=== PATIENT | male | born 1955 | race Caucasian/White ===

== ENCOUNTER 2017-07-27 15:17 | Emergency (ER) | payer OTHER ==
[~2017-07-27] VITALS: Ht 167.6 cm; Wt 81.8 kg
[~2017-07-27 15:17] MED LIST: ALPR-411 PO
[2017-07-27 15:18] VITALS: TEMP 36.8; Ht 167.6 cm; Wt 81.8 kg
--- NOTE | 2017-07-27 15:42 | EMERGENCY ROOM VISIT NOTE ---
History Report prepared by Ying: Juani Morfin Under the Supervision of: Dr. Ike Hutchinson M.D. First contact with patient: 15:21 Chief Complaint: ABDOMINAL PAIN Stated Complaint: RIGHT SIDE ABD. PAIN History of Present Illness The patient is a 62 year old male who presents to the Emergency Room with complaints of worsening RLQ abdominal pain starting yesterday. The patient noticed the pain when his belt was pressing into his abdomen. The pain worsens with movement. The pain seems worse today than it was yesterday. He currently rates his discomfort as a 3/10 in severity. He describes the pain as being similar to a cramp that occurs when running or a pulled muscle. The pain is mostly in the right lower quadrant, but sometimes occurs in the middle of his abdomen. He has never had this pain before. He had a normal bowel movement this morning. He denies any nausea, vomiting, urinary symptoms, diarrhea, or fever. He notes that he is pretty active at home. 3-4 days ago he was lifting some 50- 55 lb containers. He was also retrieving boxes of [place] from high up. He does not think he injured himself during these activities. He denies any trauma. He denies any history of abdominal surgeries or diverticulitis. Source of History: patient Onset: yesterday Position: abdomen (RLQ) Symptom Intensity: 3/10 Quality: cramping, other (pulled muscle) Timing: worsening Associated Symptoms: No fevers, No nausea, No vomiting, No diarrhea, No urinary symptoms Review of Systems See HPI for pertinent positives & negatives. A total of 10 systems reviewed and were otherwise negative. Past Medical & Surgical Medical Problems: (1) High cholesterol Surgical Problems: (1) H/O knee surgery Family History Chest pain Social History Smoking Status: Never Smoker Alcohol Use: occasionally Drug Use: none Marital Status: Housing Status: lives with significant other Occupation Status: employed Current/Historical Medications Scheduled Multiple Vitamin (Multivitamin), 1 TAB PO DAILY Rosuvastatin Calcium (Crestor), 5 MG PO DIRECTED Scheduled PRN Alprazolam (Alprazolam), 0.25 MG PO DAILY PRN for Anxiety Allergies Coded Allergies: No Known Allergies (Unverified , 08/22/16) Physical Exam Vital Signs Date Time Temp Pulse Resp B/P (MAP) Pulse Ox O2 Delivery O2 Flow Rate FiO2 07/27/17 17:28 72 16 133/88 96 07/27/17 17:15 72 16 133/88 96 Room Air 07/27/17 15:18 36.8 74 16 162/89 94 Room Air Physical Exam GENERAL: Patient is in no acute distress. HEENT: No acute trauma, normocephalic atraumatic, mucous membranes moist, no nasal congestion, no scleral icterus. NECK: No stridor, no adenopathy, no meningismus, trachea is midline. LUNGS: Clear to auscultation bilaterally, no wheeze, no rhonchi, breath sounds equal. HEART: Without murmurs gallops or rubs, regular rate and rhythm. ABDOMEN: Soft, mildly tender in the RLQ, bowel sounds positive, no hernias, no peritonitis. EXTREMITIES: No cyanosis or edema, full range of motion of all the joints without pain or difficulty, no signs for acute trauma. NEUROLOGIC: Oriented x 3, no acute motor or sensory deficits, no focal weakness. SKIN: No rash, no jaundice, no diaphoresis. Medical Decision & Procedures ER Provider Diagnostic Interpretation: Radiology results as stated below per my review and radiologist interpretation: ABD/PELVIS IV CONTRAST ONLY CT DOSE: 398.64 mGy.cm HISTORY: Pain ABD PAIN, POSS APPY, IV CONTRAST ONLY TECHNIQUE: Multiaxial CT images of the abdomen and pelvis were performed following the use of intravenous contrast. A dose lowering technique was utilized adhering to the principles of ALARA. COMPARISON STUDY: None. FINDINGS: Lung bases show a slight peribronchial prominence. Minimal dependent basilar atelectatic changes noted. Liver spleen and pancreas enhance uniformly. Small hiatal hernia. Kidneys are negative for hydronephrosis. There is an extrarenal pelvis of the right kidney. There is no evidence for an obstructing urinary tract calculus. The appendix is normal. The bowel pattern is nonobstructive. Moderate atherosclerotic change and ectasia of the abdominal aorta with no evidence for aneurysm or dissection. IMPRESSION: No significant abnormality identified within the abdomen or pelvis. Normal appendix. Mild basilar peribronchial prominence The above report was generated using voice recognition software. It may contain grammatical, syntax or spelling errors. Electronically signed by: Rafal Fierro M.D. 07/27/2017 4:58 PM Dictated Date/Time: 07/27/2017 4:53 PM Laboratory Results 07/27/17 15:40 Red Blood Count 5.44, Mean Corpuscular Volume 83.3, Mean Corpuscular Hemoglobin 29.0, Mean Corpuscular Hemoglobin Concent 34.9, Mean Platelet Volume 10.2, Neutrophils (%) (Auto) 62.5, Lymphocytes (%) (Auto) 26.6, Monocytes (%) (Auto) 8.6, Eosinophils (%) (Auto) 1.9, Basophils (%) (Auto) 0.2, Neutrophils # (Auto) 3.70, Lymphocytes # (Auto) 1.57, Monocytes # (Auto) 0.51, Eosinophils # (Auto) 0.11, Basophils # (Auto) 0.01 07/27/17 15:40 Test 07/27/17 15:25 07/27/17 15:40 Urine Color YELLOW Urine Appearance CLEAR (CLEAR) Urine pH 7.0 (4.5-7.5) Urine Specific [place] 1.019 (1.000-1.030) Urine Protein NEG (NEG) Urine Glucose (UA) NEG (NEG) Urine Ketones NEG (NEG) Urine Occult Blood NEG (NEG) Urine Nitrite NEG (NEG) Urine Bilirubin NEG (NEG) Urine Urobilinogen NEG (NEG) Urine Leukocyte Esterase TRACE (NEG) Urine WBC (Auto) 1-5 /hpf (0-5) Urine RBC (Auto) 0-4 /hpf (0-4) Urine Hyaline Casts (Auto) 0 /lpf (0-5) Urine Epithelial Cells (Auto) 0-5 /lpf (0-5) Urine Bacteria (Auto) NEG (NEG) White Blood Count 5.91 K/uL (4.8-10.8) Red Blood Count 5.44 M/uL (4.7-6.1) Hemoglobin 15.8 g/dL (14.0-18.0) Hematocrit 45.3 % (42-52) Mean Corpuscular Volume 83.3 fL (80-100) Mean Corpuscular Hemoglobin 29.0 pg (25-34) Mean Corpuscular Hemoglobin Concent 34.9 g/dl (32-36) Platelet Count 176 K/uL (130-400) Mean Platelet Volume 10.2 fL (7.4-10.4) Neutrophils (%) (Auto) 62.5 % Lymphocytes (%) (Auto) 26.6 % Monocytes (%) (Auto) 8.6 % Eosinophils (%) (Auto) 1.9 % Basophils (%) (Auto) 0.2 % Neutrophils # (Auto) 3.70 K/uL (1.4-6.5) Lymphocytes # (Auto) 1.57 K/uL (1.2-3.4) Monocytes # (Auto) 0.51 K/uL (0.11-0.59) Eosinophils # (Auto) 0.11 K/uL (0-0.5) Basophils # (Auto) 0.01 K/uL (0-0.2) RDW Standard Deviation 39.8 fL (36.4-46.3) RDW Coefficient of Variation 13.3 % (11.5-14.5) Immature Granulocyte % (Auto) 0.2 % Immature Granulocyte # (Auto) 0.01 K/uL (0.00-0.02) Anion Gap 6.0 mmol/L (3-11) Est Creatinine Clear Calc Drug Dose 68.3 ml/min Estimated GFR () 80.0 Estimated GFR (Non- 69.0 BUN/Creatinine Ratio 14.0 (10-20) Calcium Level 9.0 mg/dl (8.5-10.1) Total Bilirubin 1.2 mg/dl (0.2-1) Aspartate Amino Transf (AST/SGOT) 23 U/L (15-37) Alanine Aminotransferase (ALT/SGPT) 48 U/L (12-78) Alkaline Phosphatase 85 U/L (45-117) Total Protein 7.4 gm/dl (6.4-8.2) Albumin 3.5 gm/dl (3.4-5.0) Globulin 3.9 gm/dl (2.5-4.0) Albumin/Globulin Ratio 0.9 (0.9-2) Lipase 189 U/L (73-393) Laboratory results reviewed by me. ED Course 1526: The patient was evaluated in room C7. A complete history and physical exam was performed. 1707: I reevaluated the patient. I discussed results and discharge instructions : He verbalized understanding and agreement. The patient is ready for discharge. Medical Decision Differential diagnoses considered include appendicitis, diverticulitis, musculoskeletal pain, hernia, UTI, pancreatitis, biliary colic, mesenteric adenitis. There is no leukocytosis or concerning anemia. No significant electrolyte abnormality, kidney failure or hepatitis. There is no pancreatitis. Urinalysis does not show significant hematuria or evidence for infection. Abdominal and pelvis CT does not show diverticulitis or appendicitis. No evidence for acute surgical process by CT scan. On my exam, there was no peritonitis. The patient was not toxic or febrile. The patient presents with right lower quadrant abdominal pain. His workup is reassuring. He has been doing some work lately around his house and may have pulled a muscle. I do think he can be discharged. He was encouraged to return if not improving or worsening. I discussed the possibility of a missed appendicitis with him. He understands. Impression Primary Impression: RLQ abdominal pain Scribe Attestation The scribe's documentation has been prepared under my direction and personally reviewed by me in its entirety. I confirm that the note above accurately reflects all work, treatment, procedures, and medical decision making performed by me. Departure Information Dispostion Home / Self-Care Referrals Rodney Pemberton M.D. (PCP) Forms Call Back Authorization, HOME CARE DOCUMENTATION FORM, IMPORTANT VISIT INFORMATION Patient Instructions My [facility] Additional Instructions heat to the area may help motrin and or tylenol for pain return for worsening pain, lack of improvement, vomiting or fever CT scan today showed a normal appendix
[2017-07-27 15:43] LABS: URINE APPEARANCE CLEAR (CLEAR); URINE BILIRUBIN NEG (NEG); URINE COLOR YELLOW; URINE EPITHELIAL CELL AUTO 0-5 /lpf (0-5); URINE NITRITE NEG (NEG); URINE SPECIFIC GRAVITY 1.019 (1.000-1.030); UROBILINOGEN NEG (NEG); ZZUR CULT IF INDIC CLEAN CATCH NO
[2017-07-27 15:45] LABS: MANUAL MICROSCOPIC REQUIRED? NO; REVIEW REQ? NO
[2017-07-27] MEDS ORDERED: ROSU5TAB PO (15:50)
[2017-07-27 15:57] LABS: BASO % 0.2 %; BASO ABS # 0.01 K/uL (0-0.2); COMPLETE YES; EOS % 1.9 %; HEMATOCRIT 45.3 % (42-52); IG% 0.2 %; LYMPH % 26.6 %; LYMPH ABS # 1.57 K/uL (1.2-3.4); MEAN CELL VOLUME 83.3 fL (80-100); MEAN CORPUSCULAR HGB CONC 34.9 g/dl (32-36); MEAN PLATELET VOLUME 10.2 fL (7.4-10.4); MONO % 8.6 %; NEUT % 62.5 %; PLATELET COUNT 176 K/uL (130-400); RED BLOOD COUNT 5.44 M/uL (4.7-6.1); WHITE BLOOD COUNT 5.91 K/uL (4.8-10.8)
[2017-07-27 16:18] LABS: CREATININE 1.14 mg/dl (0.60-1.40); POTASSIUM 3.5 mmol/L (3.5-5.1)
[2017-07-27 16:21] LABS: ALB/GLOB RATIO 0.9 (0.9-2)
[2017-07-27] MEDS ORDERED: OPTIRAY 320 IV PRN (16:30)
--- NOTE | 2017-07-27 17:00 | DIAGNOSTIC IMAGING REPORT ---
ABD/PELVIS IV CONTRAST ONLY CT DOSE: 398.64 mGy.cm HISTORY: Pain ABD PAIN, POSS APPY, IV CONTRAST ONLY TECHNIQUE: Multiaxial CT images of the abdomen and pelvis were performed following the use of intravenous contrast. A dose lowering technique was utilized adhering to the principles of ALARA. COMPARISON STUDY: None. FINDINGS: Lung bases show a slight peribronchial prominence. Minimal dependent basilar atelectatic changes noted. Liver spleen and pancreas enhance uniformly. Small hiatal hernia. Kidneys are negative for hydronephrosis. There is an extrarenal pelvis of the right kidney. There is no evidence for an obstructing urinary tract calculus. The appendix is normal. The bowel pattern is nonobstructive. Moderate atherosclerotic change and ectasia of the abdominal aorta with no evidence for aneurysm or dissection. IMPRESSION: No significant abnormality identified within the abdomen or pelvis. Normal appendix. Mild basilar peribronchial prominence The above report was generated using voice recognition software. It may contain grammatical, syntax or spelling errors. Electronically signed by: Rafal Fierro M.D. 07/27/2017 4:58 PM Dictated Date/Time: 07/27/2017 4:53 PM
[2017-07-27 17:28] VITALS: BP 133/88; PULSE 72; O2SAT 96
[2017-07-27] MEDS ORDERED: MULTTAB58 PO (19:11)
== END 2017-07-27 17:20 | disposition home or self-care (01) ==
LOC: C.EDB 15:18 → C.EDC 17:20
DX: R10.31 Right lower quadrant pain (principal); E78.00 Pure hypercholesterolemia, unspecified; Z98.890 Other specified postprocedural states; Z79.899 Other long term (current) drug therapy

== ENCOUNTER → 2017-09-02 | Outpatient (CLI) | payer OTHER ==
[~2017-09-02] MED LIST changes: +MULTTAB58 PO; +ROSU5TAB PO
--- NOTE | 2017-09-02 14:56 | DIAGNOSTIC IMAGING REPORT ---
ABDOMEN FOR HERNIA CLINICAL HISTORY: 62 years-old Male presenting with R/O HERNIA. TECHNIQUE: Real-time grayscale ultrasound imaging of the abdomen was performed for a limited examination for hernia in the right lower quadrant. COMPARISON: CT from 07/27/2017. FINDINGS: No sonographic evidence of herniation. No fluid or inflammatory change evident. No subjacent dilated bowel loops. Normal appearance of the subcutaneous fat. IMPRESSION: 1. No sonographic evidence of a hernia in the right lower quadrant. Electronically signed by: Galo Guthrie M.D. 09/02/2017 2:55 PM Dictated Date/Time: 09/02/2017 2:53 PM
== END | disposition home or self-care (01) ==
LOC: C.ULTR 14:13
PROVIDERS: ATTEND Family Medicine
DX: R10.9 Unspecified abdominal pain (principal)

== ENCOUNTER → 2017-12-31 | Outpatient (CLI) | payer OTHER ==
[2017-12-31 09:35] LABS: BASO % 0.2 %; BASO ABS # 0.01 K/uL (0-0.2); EOS % 2.3 %; EOS ABS # 0.12 K/uL (0-0.5); HEMATOCRIT 47.4 % (42-52); HEMOGLOBIN 16.3 g/dL (14.0-18.0); LYMPH % 30.1 %; LYMPH ABS # 1.56 K/uL (1.2-3.4); MEAN CELL VOLUME 83.6 fL (80-100); MEAN CORPUSCULAR HEMOGLOBIN 28.7 pg (25-34); MEAN CORPUSCULAR HGB CONC 34.4 g/dl (32-36); MEAN PLATELET VOLUME 10.8 fL (7.4-10.4); MONO % 10.8 %; MONO ABS # 0.56 K/uL (0.11-0.59); NEUT % 56.6 %; NEUT ABS # 2.93 K/uL (1.4-6.5); PLATELET COUNT 185 K/uL (130-400); RED CELL DISTRIBUTION WIDTH CV 13.3 % (11.5-14.5); RED CELL DISTRIBUTION WIDTH SD 39.6 fL (36.4-46.3); WHITE BLOOD COUNT 5.18 K/uL (4.8-10.8)
[2017-12-31 09:55] LABS: ALBUMIN 3.8 gm/dl (3.4-5.0); ALT/SGPT 45 U/L (12-78); AST/SGOT 26 U/L (15-37); BLOOD UREA NITROGEN 17 mg/dl (7-18); CALCIUM 9.4 mg/dl (8.5-10.1); CARBON DIOXIDE 30 mmol/L (21-32); CREATININE 1.15 mg/dl (0.60-1.40); GLUCOSE 95 mg/dl (70-99); POTASSIUM 4.4 mmol/L (3.5-5.1); SODIUM 135 mmol/L (136-145); TOTAL PROTEIN 7.5 gm/dl (6.4-8.2)
[2017-12-31 10:03] LABS: ALKALINE PHOSPHATASE 89 U/L (45-117); CHOLESTEROL 150 mg/dl (0-200); LDL CHOLESTEROL CALCULATED 85 mg/dl; TRANSFERRIN 245 mg/dl (200-360); URIC ACID 5.2 mg/dl (2.6-7.2)
[2017-12-31 10:08] LABS: HEMOGLOBIN A1C 5.8 % (4.5-5.6)
== END | disposition home or self-care (01) ==
LOC: C.LAB 08:18
PROVIDERS: ATTEND Family Medicine
DX: R73.09 Other abnormal glucose (principal); E55.9 Vitamin D deficiency, unspecified; D51.9 Vitamin B12 deficiency anemia, unspecified; E78.9 Disorder of lipoprotein metabolism, unspecified; R53.83 Other fatigue

== ENCOUNTER 2024-08-25 19:17 | Inpatient (IN) ==
[2024-08-25 19:45] LABS: Hematocrit (blood only) 47.4 % (42.0-52.0); Hemoglobin 16.1 g/dl (14.0-18.0); Mean Corpuscular Hemoglobin 28.5 pg (25.0-34.0); Platelet Count 201 K/uL (130-400); RDW Standard Deviation 39.8 fL (36.4-46.3); Red Blood Count 5.64 M/uL (4.70-6.10); White Blood Count 8.15 K/ul (4.8-10.8)
[2024-08-25] MEDS: OPTIRAY 320 125ml IV ONE (19:46)
[2024-08-25 19:50] LABS: iSTAT Creatinine 1.1 mg/dl (0.6-1.3); iSTAT Hemoglobin 16.7 g/dl (14.0-18.0); iSTAT Ionized Calcium 1.19 mmol/l (1.12-1.32); iSTAT Potassium 3.7 mmol/L (3.3-5.0)
[2024-08-25 20:02] LABS: Albumin Globulin Ratio 1.4 (0.9-2); Albumin Level 4.5 gm/dl (3.4-5.0); BUN Creatinine Ratio 16.8 (10-20); Bilirubin,Total 1.1 mg/dl (0.2-1.0); Calcium 9.5 mg/dl (8.6-10.3); Creatinine Clr Calc Pharmacy 66.6 ml/min; Globulin 3.2 gm/dl (2.5-4.0); Potassium 3.7 mmol/L (3.5-5.1); Total Protein 7.7 gm/dl (6.0-8.3)
[2024-08-25 20:18] LABS: INR 0.9 (0.9-1.1); Partial Thromboplastin Time 27 Seconds (21-31)
--- NOTE | 2024-08-25 20:19 | CT Scan Report ---
Exam(s): CT HEAD Without Contrast EXAM: CT Head Without Intravenous Contrast CLINICAL HISTORY: Reason for exam: Neuro deficit, acute, stroke suspected. TECHNIQUE: Axial computed tomography images of the head/brain without intravenous contrast. CTDI is 37.78 mGy and DLP is 546.36 mGy-cm. Automated exposure control was utilized for the study. A dose lowering technique was utilized adhering to the principles of ALARA. COMPARISON: CT brain: 01/01/2020 FINDINGS: Diagnostic sensitivity of the exam is reduced by motion artifact. Brain: There is no acute intracranial hemorrhage, mass-effect or midline shift. Palm-white matter differentiation is maintained. . Mild/moderate cerebral atrophy with widening of the extra-axial spaces and ventricular dilatation. There are periventricular/subcortical areas of decreased attenuation within the white matter tracts, most likely from chronic microvascular disease. Bones/joints: Unremarkable. No acute fracture. Soft tissues: Unremarkable. Sinuses: Unremarkable as visualized. No acute sinusitis. Mastoid air cells: Unremarkable as visualized. No mastoid effusion.. IMPRESSION: No acute intracranial abnormality noted. If there is continued clinical concern, recommend MRI brain exam. . Communications: Call Doctor Stroke Electronically signed by: Renea Noriega MD, DABR 08/25/24 20:19 PM
--- NOTE | 2024-08-25 20:30 | CT Scan Report ---
Exam(s): CTA HEAD With Contrast IV Amt: 119ML OPTIRAY 320 EXAM: CT Angiography Head With Intravenous Contrast CLINICAL HISTORY: Reason for exam: storke symptoms. TECHNIQUE: Axial computed tomographic angiography images of the head with intravenous contrast. CTDI is 12.08 mGy and DLP is 975.02 mGy-cm. Automated exposure control was utilized for the study. A dose lowering technique was utilized adhering to the principles of ALARA. MIP reconstructed images were created and reviewed. CONTRAST: Patient received 119ML OPTIRAY 320 of IV contrast COMPARISON: CT brain: 01/01/2020 FINDINGS: Right internal carotid artery: . Intracranial segment is patent with no significant stenosis. No aneurysm. Right anterior cerebral artery: No occlusion or significant stenosis. No aneurysm. Right middle cerebral artery: No occlusion or significant stenosis. No aneurysm. Right posterior cerebral artery: No occlusion or significant stenosis. No aneurysm. Right vertebral artery: Unremarkable as visualized. Left internal carotid artery: No acute findings. Intracranial segment is patent with no significant stenosis. No aneurysm. Left anterior cerebral artery: No occlusion or significant stenosis. No aneurysm. Left middle cerebral artery: No occlusion or significant stenosis. No aneurysm. Left posterior cerebral artery: No occlusion or significant stenosis. No aneurysm. Left vertebral artery: Unremarkable as visualized. Basilar artery: No occlusion or significant stenosis. No aneurysm.. IMPRESSION: Intracranial circulation shows no vascular malformation, aneurysm or significant stenosis. No large vessel occlusion. Communications: Call Doctor Stroke Electronically signed by: Renea Noriega MD, DABR 08/25/24 20:29 PM
--- NOTE | 2024-08-25 20:40 | CT Scan Report ---
Exam(s): CTA NECK With Contrast IV Amt: 119ml opti 320 EXAM: CT Angiography Neck With Intravenous Contrast CLINICAL HISTORY: Reason for exam: storke symptoms. TECHNIQUE: Routine carotid CT angiography protocol was performed with intravenous contrast. NASCET criteria using the distal ICAs for comparison were used for evaluation of stenoses. CTDI is 12.08 mGy and DLP is 975.02 mGy-cm. Automated exposure control was utilized for the study. A dose lowering technique was utilized adhering to the principles of ALARA. MIP reconstructed images were created and reviewed. CONTRAST: Patient received 119ml opti 320 of IV contrast COMPARISON: None. FINDINGS: VASCULATURE: Right common carotid artery: Unremarkable. No occlusion or significant stenosis. No dissection. Right internal carotid artery: Unremarkable. Extracranial segment is patent with no occlusion or significant stenosis. No dissection. Right external carotid artery: Unremarkable. No occlusion. Right vertebral artery: Unremarkable. No occlusion or significant stenosis. No dissection. Left common carotid artery: Unremarkable. No occlusion or significant stenosis. No dissection. Left internal carotid artery: Unremarkable. Extracranial segment is patent with no occlusion or significant stenosis. No dissection. Left external carotid artery: Unremarkable. No occlusion. Left vertebral artery: Unremarkable. No occlusion or significant stenosis. No dissection. Atherosclerotic calcifications of the bilateral cavernous internal carotid arteries. NECK: Bones/joints: No acute fracture. No segmental malalignment. Multilevel moderate degenerative cervical spondylosis. Soft tissues: Unremarkable. Lung apices: Clear. Other findings: Gas filled mildly dilated esophagus. . CAROTID STENOSIS REFERENCE USING NASCET CRITERIA: % ICA stenosis = (1 - narrowest ICA diameter/diameter of distal cervical ICA) x 100. Mild - <50% stenosis. Moderate - 50-69% stenosis. Severe - 70-94% stenosis. Near occlusion - 95-99% stenosis. Occluded - 100% stenosis. IMPRESSION: No hemodynamically significant extracranial bilateral carotid/vertebral arterial stenoses, aneurysm or other acute pathology noted. Degenerative cervical spondylosis. . Communications: Call Doctor Stroke Electronically signed by: Renea Noriega MD, DABR 08/25/24 20:40 PM
[2024-08-25] MEDS: ASPIRIN 81 MG CHEW PO STA (20:44)
--- NOTE | 2024-08-25 20:44 | XRay Report ---
Exam(s): XR CXR 1 VIEW EXAM: XR Chest, 1 View CLINICAL HISTORY: Reason for exam: stroke alert. TECHNIQUE: Frontal view of the chest. COMPARISON: X-ray chest: 01/01/2020 FINDINGS: Lungs: Prominent peripheral pulmonary vascular markings. No consolidation. Pleural space: Unremarkable. No pneumothorax. Heart: Unremarkable. No cardiomegaly. Mediastinum: Unremarkable. Normal mediastinal contour. Bones/joints: Unremarkable. No acute fracture. Other findings: An elevated right hemidiaphragm. . IMPRESSION: Prominent perihilar peripheral pulmonary vascular markings, question mild vascular congestion. No consolidation. No pleural effusion. Elevated right hemidiaphragm. . Electronically signed by: Renea Noriega MD, DABR 08/25/24 20:44 PM
[2024-08-25 20:54] LABS: Appearance Urine Clear (Clear); Bilirubin Urine Negative (Negative); Blood Urine Negative (Negative); Color Urine Yellow; Glucose Urine UA Negative (Negative); Ketones Urine Negative (Negative); Leukocyte Esterase Urine Negative (Negative); Nitrite Urine Negative (Negative); Protein Urine Negative (Negative); Urobilinogen Urine Negative (Negative)
--- NOTE | 2024-08-25 21:26 | History & Physical Report ---
Date of Service August 25, 2024 Assessment & Plan (1) Stroke-like symptom: Plan: 69-year-old male with past medical significant for prediabetes, hypercholesterolemia, scoliosis, history of HSV infection, general anxiety disorder presents with strokelike symptoms. Today around 6:30 PM when he was talking to his he could not make good sentences. Was ordering Pizza and could not member the name of the Pizza.He was having difficulty to speak. It lasted for about half hour. Currently speaking okay. Denies any headache. No dizziness. No blurred vision or double vision. No earaches. No runny nose. No sore throat. No difficulty swallowing.Denies nausea. Denies fevers. No chest pain or shortness of breath. No cough. No abdominal pain. Normal bowel movements. Denies blood in the stools. In the ER he was micturating frequently. No rash. Denies any weakness or numbness or tingliness. He says generally his blood pressure is 120/ 80 at home. His blood pressure high in the ER. Currently resting comfortably and speaking in full sentences and able to give his history. Strokelike symptom Presents with difficulty speaking and making sentences which lasted for about half hour. CT head, CTA head and neck unremarkable Will do full stroke protocol Will follow MRI head and echo Monitoring telemetry PT OT evaluation Starting on aspirin and increase Crestor to 20 mg daily Lipid profile and HbA1c levels Consult neurology in a.m. for further recommendations Hypertension Blood pressure elevated No history Will monitor IV labetalol as needed Follow echo Hyperlipidemia Increasing Crestor to 20 mg daily Follow lipid profile DVT prophylaxis SCDs Disposition Telemetry History of Present Illness Chief Complaint: Strokelike symptoms Primary Care Provider: Jose Yi DO 69-year-old male with past medical history significant for prediabetes, hypercholesterolemia, scoliosis, history of HSV infection, general anxiety disorder presents with strokelike symptoms. Today around 6:30 PM when he was talking to his he could not make good sentences. Was ordering Pizza and could not member the name of the Pizza.He was having difficulty to speak. It lasted for about half hour. Currently speaking okay. Denies any headache. No dizziness. No blurred vision or double vision. No earaches. No runny nose. No sore throat. No difficulty swallowing.Denies nausea. Denies fevers. No chest pain or shortness of breath. No cough. No abdominal pain. Normal bowel movements. Denies blood in the stools. In the ER he was micturating frequently. No rash. Denies any weakness or numbness or tingliness. He says generally his blood pressure is 120/ 80 at home. His blood pressure high in the ER. Currently resting comfortably and speaking in full sentences and able to give his history. Past medical history. As mentioned above Past surgical history. Colonoscopy. Social history. . No smoking. Alcohol occasional. No drug use. Family history. Father alcoholism. Depression. Mother had cancer. Paternal grandmother had heart attack. Allergies Allergy/AdvReac Type Severity Reaction Status Date / Time No Known Allergies Allergy Verified 08/25/24 20:38 Home Medications Medication Instructions Recorded Confirmed Type mometasone 0.1 % topical cream 1 applic topical Q OTHER DAY PRN 06/17/18 1 10/26/23 History eczema multivitamin 1 tab PO DAILY 06/17/18 08/25/24 History alprazolam 0.5 mg tablet 0.25 mg PO DAILY PRN anxiety/sleep 01/01/20 08/25/24 History betamethasone dipropionate 0.05 % 1 applic topical UD PRN eczema 01/01/20 08/25/24 History topical ointment rosuvastatin 5 mg tablet 5 mg PO QAM 01/01/20 08/25/24 History Past Med/Surg History Problem List (Updated 08/26/24 @ 00:32 by Reji Arita MD) Stroke-like symptoms (Acute) Stroke-like symptom Left knee pain Colon cancer screening Chest discomfort (Acute) High cholesterol (Chronic) Non-cardiac chest pain (Acute) Superficial laceration of scalp (Acute) Medical History (Updated 08/26/24 @ 00:32 by Reji Arita MD) Anxiety no meds currently Hyperlipidemia does not take any meds Surgical History History of arthroscopy of right knee History of colonoscopy Family History Mother Family history of diabetes mellitus Social History Smoking Status: Never smoker Second Hand Exposure: No; Do You Dip or Chew Tobacco: No; Tobacco Cessation Education Requested by Patient: No Hx Alcohol Use: No Hx Substance Use: No Preferred Language: [place] Leonean Communication Ability: Effective 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 Head- atraumatic Eyes- PERRL. ENT- oropharynx clear Neck- supple, no JVD. Lungs- clear to auscultation no wheezing or crackles. Heart- regular rate and rhythm; no murmur, no gallop. Abdomen- normal bowel sounds, soft, nontender, no distension Extremities- no pretibial edema, no erythema seen. Neuro- alert, oriented PERRL, no facial palsy; no dysarthria; motor 5/5 bilaterally; no pronator drift, finger nose test ok, coordination of movements normal, sensations intact Results & Data Results & Data Vital Signs (Past 12 Hours) Vital Signs Temp Pulse Resp BP Pulse Ox O2 Del Method 08/25/24 19:21 36.5 C 70 20 182/99 H 97 Room Air Diagnostic Findings Laboratory Results WBC 8.15 K/ul (4.8-10.8) 08/25/24 19:24 RBC 5.64 M/uL (4.70-6.10) 08/25/24 19:24 Hgb 16.1 g/dl (14.0-18.0) 08/25/24 19:24 POC Hgb 16.7 g/dl (14.0-18.0) 08/25/24 19:37 Hct 47.4 % (42.0-52.0) 08/25/24 19:24 POC Hct 49 % (42-52) 08/25/24 19:37 MCV 84.0 fL (80.0-100.0) 08/25/24 19:24 MCH 28.5 pg (25.0-34.0) 08/25/24 19:24 MCHC 34.0 g/dL (32.0-36.0) 08/25/24 19:24 RDW Std Deviation 39.8 fL (36.4-46.3) 08/25/24 19:24 RDW Coeff of Romeo 13.0 % (11.5-14.5) 08/25/24 19:24 Plt Count 201 K/uL (130-400) 08/25/24 19:24 MPV 10.0 fL (9.4-12.4) 08/25/24 19:24 PT 10.0 Seconds (9.0-12.0) 08/25/24 19:24 INR 0.9 (0.9-1.1) 08/25/24 19:24 APTT 27 Seconds (21-31) 08/25/24 19:24 PTT Ratio 1.0 08/25/24 19:24 POC Sodium 140 mmol/L (135-144) 08/25/24 19:37 Sodium 139 mmol/L (136-145) 08/25/24 19:24 POC Potassium 3.7 mmol/L (3.3-5.0) 08/25/24 19:37 Potassium 3.7 mmol/L (3.5-5.1) 08/25/24 19:24 POC Chloride 102 mmol/L (101-112) 08/25/24 19:37 Chloride 102 mmol/L (98-107) 08/25/24 19:24 Carbon Dioxide 29 mmol/L (21-32) 08/25/24 19:24 POC Total CO2 27 mmol/L (24-31) 08/25/24 19:37 Anion Gap 8 (3-11) 08/25/24 19:24 POC Anion Gap 16.0 mmol/L (16-25) 08/25/24 19:37 POC BUN 19 mg/dl (7-18) H 08/25/24 19:37 BUN 18 mg/dl (6-23) 08/25/24 19:24 Creatinine 1.07 mg/dl (0.6-1.4) 08/25/24 19:24 POC Creatinine 1.1 mg/dl (0.6-1.3) 08/25/24 19:37 Est Cr Clr Drug Dosing 66.6 ml/min 08/25/24 19:24 eGFR 75.59 08/25/24 19:24 BUN/Creatinine Ratio 16.8 (10-20) 08/25/24 19:24 Glucose 109 mg/dl (70-99(Fasting)) H 08/25/24 19:24 POC Glucose (other) 102 mg/dl (70-99) H 08/25/24 19:37 Calcium 9.5 mg/dl (8.6-10.3) 08/25/24 19:24 POC Ioniz Calcium Carmelo 1.19 mmol/l (1.12-1.32) 08/25/24 19:37 Magnesium 2.0 mg/dl (1.7-2.4) 08/25/24 19:24 Total Bilirubin 1.1 mg/dl (0.2-1.0) H 08/25/24 19:24 AST 25 U/L (13-39) 08/25/24 19:24 ALT 35 U/L (7-52) 08/25/24 19:24 Alkaline Phosphatase 93 U/L (34-104) 08/25/24 19:24 Total Protein 7.7 gm/dl (6.0-8.3) 08/25/24 19:24 Albumin 4.5 gm/dl (3.4-5.0) 08/25/24 19:24 Globulin 3.2 gm/dl (2.5-4.0) 08/25/24 19:24 Albumin/Globulin Ratio 1.4 (0.9-2) 08/25/24 19:24 Urine Color Yellow 08/25/24 20:40 Urine Appearance Clear (Clear) 08/25/24 20:40 Urine pH 6.0 (4.5-7.5) 08/25/24 20:40 Ur Specific [place]rard 1.030 (1.000-1.030) 08/25/24 20:40 Urine Protein Negative (Negative) 08/25/24 20:40 Urine Glucose (UA) Negative (Negative) 08/25/24 20:40 Urine Ketones Negative (Negative) 08/25/24 20:40 Urine Blood Negative (Negative) 08/25/24 20:40 Urine Nitrite Negative (Negative) 08/25/24 20:40 Urine Bilirubin Negative (Negative) 08/25/24 20:40 Urine Urobilinogen Negative (Negative) 08/25/24 20:40 Ur Leukocyte Esterase Negative (Negative) 08/25/24 20:40 Impressions Chest X-Ray 08/25/24 19:30 Exam(s): XR CXR 1 VIEW EXAM: XR Chest, 1 View CLINICAL HISTORY: Reason for exam: stroke alert. TECHNIQUE: Frontal view of the chest. COMPARISON: X-ray chest: 01/01/2020 FINDINGS: Lungs: Prominent peripheral pulmonary vascular markings. No consolidation. Pleural space: Unremarkable. No pneumothorax. Heart: Unremarkable. No cardiomegaly. Mediastinum: Unremarkable. Normal mediastinal contour. Bones/joints: Unremarkable. No acute fracture. Other findings: An elevated right hemidiaphragm. . IMPRESSION: Prominent perihilar peripheral pulmonary vascular markings, question mild vascular congestion. No consolidation. No pleural effusion. Elevated right hemidiaphragm. . Electronically signed by: Renea Noriega MD, DABR 08/25/24 20:[address] 08/25/24 19:30 CR Exam(s): CT HEAD Without Contrast EXAM: CT Head Without Intravenous Contrast CLINICAL HISTORY: Reason for exam: Neuro deficit, acute, stroke suspected. TECHNIQUE: Axial computed tomography images of the head/brain without intravenous contrast. CTDI is 37.78 mGy and DLP is 546.36 mGy-cm. Automated exposure control was utilized for the study. A dose lowering technique was utilized adhering to the principles of ALARA. COMPARISON: CT brain: 01/01/2020 FINDINGS: Diagnostic sensitivity of the exam is reduced by motion artifact. Brain: There is no acute intracranial hemorrhage, mass-effect or midline shift. Palm-white matter differentiation is maintained. . Mild/moderate cerebral atrophy with widening of the extra-axial spaces and ventricular dilatation. There are periventricular/subcortical areas of decreased attenuation within the white matter tracts, most likely from chronic microvascular disease. Bones/joints: Unremarkable. No acute fracture. Soft tissues: Unremarkable. Sinuses: Unremarkable as visualized. No acute sinusitis. Mastoid air cells: Unremarkable as visualized. No mastoid effusion.. IMPRESSION: No acute intracranial abnormality noted. If there is continued clinical concern, recommend MRI brain exam. . Communications: Call Doctor Stroke Electronically signed by: Renea Noriega MD, RHONDA 08/25/24 20:19 PM Head CTA 08/25/24 19:33 CR Exam(s): CTA HEAD With Contrast IV Amt: 119ML OPTIRAY 320 EXAM: CT Angiography Head With Intravenous Contrast CLINICAL HISTORY: Reason for exam: storke symptoms. TECHNIQUE: Axial computed tomographic angiography images of the head with intravenous contrast. CTDI is 12.08 mGy and DLP is 975.02 mGy-cm. Automated exposure control was utilized for the study. A dose lowering technique was utilized adhering to the principles of ALARA. MIP reconstructed images were created and reviewed. CONTRAST: Patient received 119ML OPTIRAY 320 of IV contrast COMPARISON: CT brain: 01/01/2020 FINDINGS: Right internal carotid artery: . Intracranial segment is patent with no significant stenosis. No aneurysm. Right anterior cerebral artery: No occlusion or significant stenosis. No aneurysm. Right middle cerebral artery: No occlusion or significant stenosis. No aneurysm. Right posterior cerebral artery: No occlusion or significant stenosis. No aneurysm. Right vertebral artery: Unremarkable as visualized. Left internal carotid artery: No acute findings. Intracranial segment is patent with no significant stenosis. No aneurysm. Left anterior cerebral artery: No occlusion or significant stenosis. No aneurysm. Left middle cerebral artery: No occlusion or significant stenosis. No aneurysm. Left posterior cerebral artery: No occlusion or significant stenosis. No aneurysm. Left vertebral artery: Unremarkable as visualized. Basilar artery: No occlusion or significant stenosis. No aneurysm.. IMPRESSION: Intracranial circulation shows no vascular malformation, aneurysm or significant stenosis. No large vessel occlusion. Communications: Call Doctor Stroke Electronically signed by: Renea Noriega MD, DABR 08/25/24 20:29 PM Neck CTA 08/25/24 19:33 CR Exam(s): CTA NECK With Contrast IV Amt: 119ml opti 320 EXAM: CT Angiography Neck With Intravenous Contrast CLINICAL HISTORY: Reason for exam: storke symptoms. TECHNIQUE: Routine carotid CT angiography protocol was performed with intravenous contrast. NASCET criteria using the distal ICAs for comparison were used for evaluation of stenoses. CTDI is 12.08 mGy and DLP is 975.02 mGy-cm. Automated exposure control was utilized for the study. A dose lowering technique was utilized adhering to the principles of ALARA. MIP reconstructed images were created and reviewed. CONTRAST: Patient received 119ml opti 320 of IV contrast COMPARISON: None. FINDINGS: VASCULATURE: Right common carotid artery: Unremarkable. No occlusion or significant stenosis. No dissection. Right internal carotid artery: Unremarkable. Extracranial segment is patent with no occlusion or significant stenosis. No dissection. Right external carotid artery: Unremarkable. No occlusion. Right vertebral artery: Unremarkable. No occlusion or significant stenosis. No dissection. Left common carotid artery: Unremarkable. No occlusion or significant stenosis. No dissection. Left internal carotid artery: Unremarkable. Extracranial segment is patent with no occlusion or significant stenosis. No dissection. Left external carotid artery: Unremarkable. No occlusion. Left vertebral artery: Unremarkable. No occlusion or significant stenosis. No dissection. Atherosclerotic calcifications of the bilateral cavernous internal carotid arteries. NECK: Bones/joints: No acute fracture. No segmental malalignment. Multilevel moderate degenerative cervical spondylosis. Soft tissues: Unremarkable. Lung apices: Clear. Other findings: Gas filled mildly dilated esophagus. . CAROTID STENOSIS REFERENCE USING NASCET CRITERIA: % ICA stenosis = (1 - narrowest ICA diameter/diameter of distal cervical ICA) x 100. Mild - <50% stenosis. Moderate - 50-69% stenosis. Severe - 70-94% stenosis. Near occlusion - 95-99% stenosis. Occluded - 100% stenosis. IMPRESSION: No hemodynamically significant extracranial bilateral carotid/vertebral arterial stenoses, aneurysm or other acute pathology noted. Degenerative cervical spondylosis. . Communications: Call Doctor Stroke Electronically signed by: Renea Noriega MD, DABR 08/25/24 20:40 PM ECG Additional Comments: ECG normal sinus rhythm rate of 67. Nonspecific T wave abnormality. No significant change was found. QTc 426. Code Status & VTE Plan VTE Prophylaxis Plan VTE Prophylaxis will be ordered: Yes
[2024-08-25] MEDS ORDERED: NITROGLYCERIN SL 0.4 MG/TAB TAB SL PRN (22:47)
[2024-08-25] MEDS ORDERED: POLYETHYLENE (MIRALAX) 17 GM PACK PO PRN (22:47)
[2024-08-25] MEDS ORDERED: PHARMACIST DISCHARGE MED REC CONSULT PRN (22:47)
[2024-08-25] MEDS ORDERED: ACETAMINOPHEN 325 MG TAB PO PRN (22:47)
[2024-08-25] MEDS ORDERED: LABETALOL HCL IV 5 MG/ML 20ML IV PRN (22:47)
[2024-08-25] MEDS ORDERED: ALPRAZolam 0.25 MG TABLET PO PRN (22:47)
--- OUTSIDE RECORDS SUMMARY | 2024-08-25 23:28 | External Medical Summary | Summary of Care ---
Author Name Unknown Organization [facility] Address [address] [place] [address] Phone [phone] Care Team Providers Care Rn Ent Name Role Phone Jose Yi DO Primary Care Provider [phone] Reason for Visit * Reason Comments NEW PATIENT Referred by Dr. Philomena ng for possible psoriatic arthritis * Evaluate & Treat - Unlimited Visits (Within 30 days (routine)) - Authorized Specialty Diagnoses / Procedures Referred By Elie hurley Referred To Contact Rheumatology Diagnoses Scalp psoriasis Psoriasis Mojgan Geiger PA-C [address] [place] [address] [place] [address] Referral ID Status Reason Start Date Expiration Date Visits Requested Visits Authorized [id number] Authorized Specialty Services Required 05/30/[phone] Encounter Details Date Type Department Care Team (Late st Contact Info) Description 06/05/2024 11:00 AM EDT Office Visit Rheumatology [address] [place] [address] Ami Rodriguez CRNP [address] [place] [address] [place] [address] Psoriasis*; Polyarthralgia Allergies No known active allergiesdocumented as of this encounter (statuses as of 06/08/2024) Medications Medication Sig Dispensed Refills Start Date End Date Status Nystatin 185360 UNIT/GM External Powder (Nystop) Apply topically to affected area 3 times a day. Apply to buttocks 15 g 5 07/15/2022 Active Fluticasone Propionate 50 MCG/ACT Nasal Suspension (Flonase) Administer 2 Sprays into each nostril in the morning. opp hand. 16 g 1 11/25/2022 Active Nystatin-Triamcinolon e 551930-4.1 UNIT/GM-% External Cream (Mycolog) apply topically to affected area twice a day for 14 days 12/04/2022 Active Omeprazole 20 MG Oral Capsule Delayed Release (PriLOSEC)Indications :Gastroesophageal reflux disease, unspecified whether esophagitis present,Abdominal pain, epigastric Take 1 Capsule by mouth in the morning. 1 hour before the first meal of the day. 90 Capsule 1 05/17/2023 Active Tacrolimus 0.1 % External Ointment (Protopic)Indications :Psoriasis,Scalp psoriasis Apply to psoriasis spots on scalp/arms/legs/ trunk 2x daily (or more if itchy instead of scratching) until resolved 100 g 3 08/10/2023 Active Rosuvastatin Calcium 5 MG Oral Tablet (Crestor)Indications: Other hyperlipidemia TAKE 1 TABLET BY MOUTH EVERY MORNING 90 Tablet 3 02/13/2024 Active valACYclovir HCl 1 GM Oral Tablet (Valtrex)Indications: Herpes simplex infection of skin take 1 tablet by mouth once daily for 5 days DURING SKIN FLARES 15 Tablet 1 02/23/2024 Active Betamethasone Dipropionate 0.05 % External OintmentIndications:P soriasis,Scalp psoriasis APPLY 2 TIMES A DAY OR MORE IF ITCHY INSTEAD OF SCRATING, APPLY TO PSORIASIS ON TRUNK ARMS LEGS UNTIL RESOLVED ALONG WITH LIGHT THERAPY 100 g 2 02/23/2024 Active ALPRAZolam 0.5 MG Oral Tablet (xaNAX)Indications:GA D (generalized anxiety disorder) Take 0.5 Tablets by mouth daily as needed for Anxiety. 20 Tablet 1 03/27/2024 Active Cyclobenzaprine HCl 5 MG Oral Tablet (Flexeril) Take 1 Tablet by mouth in the morning and 1 Tablet at noon and 1 Tablet before bedtime. 30 Tablet 05/03/2024 Active documented as of this encounter (statuses as of 06/08/2024) Active Problems Problem Noted Date Diagnosed Date Acute right-sided thoracic back pain 05/03/2024 Plaque psoriasis 08/18/2023 Pure hypercholesterolemia 11/28/2021 ALEXUS (generalized anxiety disorder) 11/26/2020 Prediabetes 07/08/2020 Overview: Per Prediabetes protocol Psoriasis 07/06/2019 Actinic keratosis 10/19/2013 Overview: Efudex (10/2019, 10/20 to scalp) Other seborrheic keratosis 10/19/2013 HSV infection 10/19/2013 documented as of this encounter (statuses as of 06/08/2024) Immunizations Name Administration Dates Next Due COVID-19 mRNA, LNP-s, No Pre serve, 2-Dose Series (Moderna) 10/27/2020,09/22/2020 COVID-19, mRNA, LNP-s, PF, B ooster, 100mcg/0.5mg (Moderna) 07/03/2021 HepA Inact/HepB Recomb>=18yrs old 06/24/2013,,09/18/2012 Pneumococcal Polysaccharide PPV23 (Pneumovax) 06/09/2021 Seasonal Influenza Virus Vac cine, Unspecified Formulation 07/06/2019 Seasonal Influenza, PF, 6 M & above, IM , (FluLaval or Fluzone) 05/28/2020,07/06/2019 Seasonal Influenza, Quadriva lent Hd (Fluzone Hd) 06/24/2023,05/29/2022,06/09/2021 TDAP (age 10 and older)(Boostrix) 10/01/2016,08/2000 documented as of this encounter Social History Tobacco Use Types Packs/Day Years Used Date Smoking Tobacco: Never Passive Smoke Exposure: Past Smokeless Tobacco: Never Tobacco Cessation:Counseling Given: Not Answered Alcohol Use Standard Drinks/Week Comments Yes 0 (1 standard drink = 0.6 oz pur e alcohol) occ PHQ-2 Answer Date Recorded PHQ Adult Total Score 0 12/27/2023 Hunger Vital Sign Answer Date Recorded Within the past 12 months, y ou worried that your food would run out before you got the money to buy more. Patient declined Within the past 12 months, t he food you bought just didn't last and you didn't have money to get more. Patient declined Childcare Answer Date Recorded Do you feel overwhelmed with taking care of a child, family member or friend? No 12/27/2023 Does your family need help f inding childcare? (Household - for ages 0-17 years) Not on file 12/27/2023 Clothing Answer Date Recorded Have you been unable to get clothing when it was really needed? No 12/27/2023 Is your family able to get c lothes or diapers when needed? (Household - for ages 0-17 years) Not on file 12/27/2023 Personal Safety Answer Date Recorded Do you feel unsafe or have concerns for your saf ety? No 12/27/2023 Do you have concerns for you r family's safety? (Household - for ages 0-17 years) Not on file 12/27/2023 Utilities Answer Date Recorded Do you have trouble paying y our heating, water, or electric bill? No 12/27/2023 Is your family able to pay t he heat, water, or electric bill? (Household - for ages 0-17 years) Not on file 12/27/2023 Does your family have access to good internet? (Household - for ages 0-17 years) Not on file 12/27/2023 Employment Status Answer Date Recorded Are you unemployed or without regular income? No 12/27/2023 Does the household have a re gular source of income? (Household - for ages 0-17 years) Not on file 12/27/2023 Social Connections Answer Date Recorded How often do you feel lonely or isolated from th ose around you? Never 12/27/2023 Financial Resource Strain Answer Date R ecorded Do you have any trouble payi ng for your medications, or do you think you might in the future? No 12/27/2023 Does your family have troubl e paying for medicine? (Household - for ages 0-17 years) Not on file 12/27/2023 Transportation Needs Answer Date Record ed READ ONLY Do you have troubl e getting a ride to medical visits or work? Never True 12/27/2023 Does your family have a hard time getting a ride to doctors visits? (Household - for ages 0-17 years) Not on file 12/27/2023 Has lack of transportation k ept you from medical appointments, meetings, work, or from getting things needed for daily living? Check all that apply. (Adult - for ages 18 years and over) Not on file 12/27/2023 Do you (or your family) have trouble finding or paying for a ride (transportation)? (Household - for ages 0-17 years) Not on file 12/27/2023 Housing Stability Answer Date Recorded Do you currently live in a s helter or have no steady place to sleep at night? No 12/27/2023 READ ONLY Do you think you a re at risk of becoming homeless? No 12/27/2023 Does your family worry about paying for your home or becoming homeless? (Household - for ages 0-17 years) Not on file 0 12/27/2023 Are you homeless or worried that you might be in the future? (Adult - for ages 18 years and over) Not on file Are you (or your family) nupur eless or worried that you might be in the future? (Household - for ages 0-17 years) Not on file Food Insecurity Answer Date Recorded Do you need food for this week? No 12/27/2023 Are you able to get enough f ood for your family? (Household - for ages 0-17 years) Not on file 12/27/2023 Does your family need food t his week? (Household - for ages 0-17 years) Not on file 12/27/2023 Do you always have enough fo od for your family? (Household - for ages 0-17 years) Not on file 12/27/2023 Sex and Gender Information Value Date Recorded Sex Assigned at Male 12/27/2023 3:12 PM EDT Gender Identity Male 12/27/2023 3:12 PM EDT Sexual Orientation Straight 12/27/2023 3: 12 PM EDT Job Start Date Occupation Industry Not on file Not on file Not on file documented as of this encounter Last Filed Vital Signs Vital Sign Reading Time Taken Comments Blood Pressure - - Pulse - - Temperature 36.6 C (97.8 F) 06/05/2024 11:03 AM E DT Respiratory Rate - - Oxygen Saturation - - Inhaled Oxygen Concentration - - Weight 81.2 kg (179 lb) 06/05/2024 11:03 AM EDT Height - - Body Mass Index 28.89 01/03/2024 8:25 AM EDT documented in this encounter Patient Instructions * Patient Instructions* Ami Rodriguez CRNP - 06/05/2024 11:55 AM EDT Get Labs Get Lumbar spine X-rays Follow up pending imaging and labs results Contact clinic with any questions or concerns documented in this encounter Progress Notes * Ami Rodriguez CRNP - 06/05/2024 11:12 AM EDT Reason for visit: Rheumatology consultation for polyarthritis Referring Provider: Jose Yi DO HPI: Dallas Ng Miladys is here at the request of Jose Yi DO for further evaluation of polyarthritis. Dallas Hook pmhx is listed below. Reports that he was dx with Psoriasis for a fewyears now and follows with Derm. He notes that he did light therapy and in the Summer he held off. He notes that he started having joint pains last year. He notes that his lower back and right 2nd DIP which can be painful and bent forwards. Denies Dactylitis or nail pitting. He notes that he wrestled when he was younger and used to do heavy lifting. Repots he uses Betamethasone for his Psoriasis on his scalp, elbows, ankles. Reports last month his right great toes was painful and mildly swollen but resolved. Musculoskeletal ROS: . Abnormal: back pain . AM stiffness (hours): 0 . Pain scale (0-10): 0 . Fatigue scale (0-10): 0 . Job status: working Other ROS: . Constitutional: trouble sleeping . Head normal . Eyes: normal . Ears, nose, throat, mouth: normal . Cardiovascular: normal . Respiratory: normal . Gastrointestinal: normal . Genitourinary: normal . Skin: Psoriasis . Neurologic: normal All other ROS reviewed and negative Current Outpatient Medications Medication Sig Dispense Refill Cyclobenzaprine HCl 5 MG Oral Tablet (Flexeril) Take 1 Tablet by mouth in the morning and 1 Tablet at noon and 1 Tablet before bedtime. 30 Tablet 0 ALPRAZolam 0.5 MG Oral Tablet (xaNAX) Take 0.5 Tablets by mouth daily as needed for Anxiety. 20 Tablet 1 Betamethasone Dipropionate 0.05 % External Ointment APPLY 2 TIMES A DAY OR MORE IF ITCHY INSTEAD OFSCRATING, APPLY TO PSORIASIS ON TRUNK ARMS LEGS UNTIL RESOLVED ALONG WITH LIGHT THERAPY 100 g 2 valACYclovir HCl 1 GM Oral Tablet (Valtrex) take 1 tablet by mouth once daily for 5 days DURING SKIN FLARES 15 Tablet 1 Rosuvastatin Calcium 5 MG Oral Tablet (Crestor) TAKE 1 TABLET BY MOUTH EVERY MORNING 90 Tablet 3 Tacrolimus 0.1 % External Ointment (Protopic) Apply to psoriasis spots on scalp/arms/legs/trunk 2x daily (or more if itchy instead of scratching) until resolved 100 g 3 Omeprazole 20 MG Oral Capsule Delayed Release (PriLOSEC) Take 1 Capsule by mouth in the morning. 1 hour before the first meal of the day. 90 Capsule 1 Nystatin-Triamcinolone 156137-3.1 UNIT/GM-% External Cream (Mycolog) apply topically to affected area twice a day for 14 days Fluticasone Propionate 50 MCG/ACT Nasal Suspension (Flonase) Administer 2 Sprays into each nostril in the morning. opp hand. 16 g 1 Nystatin 978417 UNIT/GM External Powder (Nystop) Apply topically to affected area 3 times a day. Apply to buttocks 15 g 5 No current facility-administered medications for this visit. Past Medical History: Diagnosis Date Hyperlipemia Psoriasis Past Surgical History: Procedure Laterality Date COLONOSCOPY, DIAGNOSTIC (RECTUM) 09/10/2008 repeat in 10 yrs COLONOSCOPY, DIAGNOSTIC (RECTUM) 01/03/2024 biopsies show inflammatory tissue/recall 5 years/COLONOSCOPY FLEXIBLE PROXIMAL DIAGNOSTIC performedby Chantel Mai MD at [facility] Family History Problem Relation Name Age of Onset Cancer Mother Depression Father Alcohol and Other Disorders Associated Father No Known Problems Sister No Known Problems Brother No Known Problems Brother No Known Problems Brother Heart attack Grandmother (Paternal) No Known Problems Daughter No Known Problems Daughter No Known Problems Son No Known Problems Son Social History Social History Tobacco Use Smoking status: Never Passive exposure: Past Smokeless tobacco: Never Vaping Use Vaping status: Never Used Substance Use Topics Alcohol use: Yes Comment: occ Drug use: Never Physical Exam Filed Vitals: 06/05/24 1103 Temp: 36.6 C (97.8 F) TempSrc: Infrared Weight: 81.2 kg (179 lb) General: alert, healthy, and no distress HENT: normocephalic, external ears normal, no mucosal erythema, no mucosal edema, moist mucosa, no oral ulcers Eye Exam: PERRL, EOMI, conjunctiva are pink and non-injected, sclera clear Neck: supple, no adenopathy Lymph: no palpable lymphadenopathy Heart: regular rate & rhythm, no murmur, and no gallops Lungs: clear to auscultation , no rales, wheezes or rhonchi Abdomen: abdomen soft, non-tender, and normal bowel sounds Extremities: no edema, no clubbing, no cyanosis Neuro Exam: alert & oriented x 3 with fluent speech, no focal motor/sensory deficits, gait normal, reflexes normal and symmetric Skin: Psoriasis noted on elbows and ankles. Musculoskeletal Exam: A comprehensive musculoskeletal exam was performed for all joints of each upper and lower extremity and assessed for swelling, tenderness and range of motion. No peripheral joint tenderness. Good range of motion of all joints. No SI joint tenderness. No joint swelling. Hand X-rays 03/27/2024 IMPRESSION Cartilage space loss, periarticular osteopenia, and possible marginal erosion at the index finger DIP joint. Given location of arthropathy, osteoarthritis is most likely. Superimposed inflammatory arthropathy is considered less likely, however cannot be ruled out due to periarticular osteopenia andpossible marginal erosion. Assessment (L40.9) Psoriasis (primary encounter diagnosis) (M25.50) Polyarthralgia Plan: ERYTHROCYTE SEDIMENTATION RATE (ESR), CRP (INFLAMMATORY MARKER), XR L SPINE AP AND LATERAL, URIC ACID Mr. Hook has today as a new patient for evaluation of polyarthralgia. He has a history of psoriasis for several years. Based on hand imaging, history and physical exam unlikely psoriatic arthritisand more of a concern for osteoarthritis. We will check inflammatory markers, uric acid, imaging ofthe L- spine. We will follow-up yearly for evaluation, sooner if needed. Advised patient to contact clinic with any questions or concerns. Patient agreeable to this plan and verbalized understanding. Plan 1. Labs/Imaging: ESR/CRP, Uric Acid. L Spine X-rays 2. Medications: None 3. Follow up yearly, sooner if needed. 4. Contact clinic with any questions or concerns 5. Discussed the above in detail with the patient. All questions answered. 6. CC Mojgan Geiger PA-C and Dr. Yi. I spent a total of 40-54 minutes (exact time 54 mins) on the date of service in preparation, delivery, and documentation of the care provided to Dallas Hook excluding any time spent in the performance of separately billed services. FAY Javed Rheumatology Department I saw the patient. I agree with the findings and plan as documented by Ami APONTE in this note. Mino Harman MD Rheumatology Department documented in this encounter Nursing Notes * Sparkle Escobar LPN - 06/05/2024 11:01 AM EDT Chief Complaint Patient presents with NEW PATIENT Referred by Dr. Geiger for possible psoriatic arthritis documented in this encounter Plan of Treatment Upcoming Encounters Date Type Department Care Team (Late st Contact Info) Description 07/04/2024 11:40 AM EST Office Visit [address] [address] Mojgan Geiger PA-C [address] [place] [address] [place] [address] 10/17/2024 9:20 AM EST Office Visit [facility] [place] [address] [place] [address] Jose Yi, [address] [place] [address] 04/12/2025 10:20 AM EDT [facility] [place] [address] [facility] [address] Mojgan Geiger PA-C [address] [place] [address] [place] [address] 06/05/2025 10:00 AM EDT Office Visit Rheumatology [facility] [address] [place] [address] Ami Rodriguez CRNP [address] [employer] [place] [address] Scheduled Orders Name Type Priority Associated Diagnoses Orde r Schedule ERYTHROCYTE SEDIMENTATION RATE (ESR) Lab Routine Polyarthralgia Expected: 06/05/2024, Expires: 06/05/2025 CRP (INFLAMMATORY MARKER) Lab Routine Polyarthralgia Expected: 07/06/2024 (Approximate), Expires: 06/05/2025 XR L SPINE AP AND LATERAL Medical Imaging Routine Polyarthralgia Ordered: 06/05/2024 URIC ACID Lab Routine Polyarthralgia Expected: 06/05/2024, Expires: 06/05/2025 Scheduled Procedures Name Priority Associated Diagnoses Date/Ti me COLONOSCOPY FLEXIBLE PROXIMA L DIAGNOSTIC Recall History of colonic polyps Health Maintenance Due Date Last Done Comments Cologuard 01/11/2001 Fecal Occult Blood Test 01/11/2001 Sigmoidoscopy 01/11/2001 Zoster Vaccines (1 of 2) 01/11/2006 Adult Wellness Visit 01/11/2022 Pneumococcal Vaccine: 65+ Years (2 of 2 - PCV) 06/09/2022 06/09/2021 COVID-19 Vaccine ( - season) 2024 07/03/2021, 10/27/2020, 09/22/2020 Influenza Vaccine (FLU shot) (#1) 2024 06/24/2023, 05/29/2022, 05/29/2022, Additional history exists Depression Screening 12/26/2024 12/27/2023 HbA1c 03/22/2025 03/22/2024, 07/30, 07/15/2022, Additional history exists DTap/Tdap Vaccines (3 - Td or Tdap) 10/01/2026 10/01/2016, 01/28/2001 Lipid Panel 08/11/2028 08/11/2023, 06/30, 12/10/2021, Additional history exists Colonoscopy 01/02/2029 01/03/2024, 01/2024, 06/24/2018, Additional history exists Colorectal Cancer Screening 01/02/2029 Hepatitis B Vaccine Completed 06/24/2013, 10/26/2012, 09/18/2012 RETIRED - COLONOSCOPY-EVERY 5 YRS AGES 18-100 Discontinued 01/03/2024, 01/03/2024, 06/24/2018, Additional history exists HPV (Gardasil) Vaccine Aged Out No lo nger eligible based on patient's age to complete this topic Hepatitis C Screening Discontinued MENINGOCOCCAL (MENACTRA/MENVEO) Aged Out No longer eligible based on patient's age to complete this topic documented as of this encounter Medical Devices Implanted Type Area Stevedore Dock Device Identifier Shelf Expiration Date Model / Serial / Lot Duraclip 16mm Xlg Repostn - [id number] Implanted:Qty: 1 on 01/03/2024 by Chantel Mai MD at END[facility]COPY [facility] [employer] 10/17/2024 [id number] / / Description:placed on ICV po lypectomy site documented as of this encounter Visit Diagnoses Diagnosis Psoriasis- Primary Other psoriasis Polyarthralgia Pain in joint, multiple sites documented in this encounter Care Teams Rn Ent Relationship Specialty Start Date End Date Jose iY DO [address] [place] [address] PCP - General Family Medicine 06/18/20 documented as of this encounter
--- OUTSIDE RECORDS SUMMARY | 2024-08-25 23:28 | External Medical Summary | Summary of Care ---
Author Name Unknown Organization [facility] Address [address] [place] [address] Phone [phone] Care Team Providers Care Park Aide Name Role Phone Jose Yi DO Primary Care Provider [phone] Reason for Visit * Reason Onset Date Comments Medication Refill 07/06/2024 Encounter Details Date Type Department Care Team (Late st Contact Info) Description 07/06/2024 Refill Family Practice [facility] [address] [facility] [address] Jose Yi DO [address] [place] [address] Other hyperlipidemia Allergies No known active allergiesdocumented as of this encounter (statuses as of 07/06/2024) Medications Medication Sig Dispensed Refills Start Date End Date Status Nystatin 662401 UNIT/GM External Powder (Nystop) Apply topically to affected area 3 times a day. Apply to buttocks 15 g 5 07/15/2022 Active Fluticasone Propionate 50 MCG/ACT Nasal Suspension (Flonase) Administer 2 Sprays into each nostril in the morning. opp hand. 16 g 1 11/25/2022 Active Nystatin-Triamcinolon e 636850-2.1 UNIT/GM-% External Cream (Mycolog) apply topically to [...] as of this encounter (statuses as of 07/06/2024) Active Problems Problem Noted Date Diagnosed Date Acute right-sided thoracic back pain 05/03/2024 Plaque psoriasis 08/18/2023 Pure hypercholesterolemia 11/28/2021 ALEXUS (generalized anxiety disorder) 11/26/2020 Prediabetes 07/08/2020 Overview: Per Prediabetes protocol Psoriasis 07/06/2019 Actinic keratosis 10/19/2013 Overview: Efudex (10/2019, 10/20 to scalp) Other seborrheic keratosis 10/19/2013 HSV infection 10/19/2013 documented as of this encounter (statuses as of 07/06/2024) Immunizations Name Administration Dates Next Due COVID-19 [...] Passive Smoke Exposure: Past Smokeless Tobacco: Never Alcohol Use Standard Drinks/Week Comments Yes 0 [...] 12/27/2023 Does the household have a re lar source of income? (Household - for ages [...] on file documented as of this encounter Miscellaneous Notes * Telephone Encounter - Doris Fernandez RPh - 07/06/2024 8:45 PM EST Refused Prescriptions: Disp Refills Rosuvastatin Calcium 5 MG Oral Tablet (Cre*90 Tab*3 Sig: Take 1Tablet by mouth in the morning. In the morning..Refused By: DORIS FERNANDEZ for Refusal: Too soon documented in this encounter Plan of Treatment Upcoming Encounters Date Type Department Care Team (Late st Contact Info) Description 10/17/2024 9:20 AM EST Office Visit Family Practice [facility] [place] [address] [place] [address] Jose Yi DO [address] [place] [address] 04/12/2025 10:20 AM EDT [facility] [address] [facility] [address] Mojgan Geiger, DANGELO [address] [place] [address] [place] [address] 06/05/2025 10:00 AM EDT Office Visit Rheumatology [facility] [address] [place] [address] Ami Rodriguez CRNP [address] [place] [address] Scheduled Procedures Name Priority Associated Diagnoses Date/Ti [...] 12/10/2021, Additional history exists Colonoscopy 01/02/2029 01/03/2024, 0501/2024, 06/24/2018, Additional history exists Colorectal Cancer Screening [...] this encounter Medical Devices Implanted Type Area Irrigator Sprinkling System Device Identifier Shelf Expiration Date Model / Serial / Lot Duraclip 16mm Xlg Repostn - [id number] Implanted:Qty: 1 on 01/03/2024 by Chantel Mai MD at [facility] [employer] 10/17/2024 [id number] / / Description:placed on ICV po lypectomy site documented as of this encounter Visit Diagnoses Diagnosis Other hyperlipidemia documented in this encounter Care Teams Park Aide Relationship Specialty Start Date End Date Jose Yi DO [address] [place] [address] PCP - General Family Medicine 06/18/20 documented as of this encounter
--- OUTSIDE RECORDS SUMMARY | 2024-08-25 23:28 | External Medical Summary ---
Author Name Unknown Address Unknown Organization K01:[facility] [place] [address] [place] [address] Laboratory Report Ordering Provider Test Date Status LUIS MIGUEL WEST 06/20/2024 11:35:02 Final Observation Date Value Abnormality Reference (Units ) Status CRP, low-sensitivity 06/20/2024 11:35:02 <3 <=5 (mg/L) Final Performing Location [facility] - [address] [place] [address]
--- OUTSIDE RECORDS SUMMARY | 2024-08-25 23:28 | External Medical Summary | Summary of Care ---
Author Name Unknown Organization [facility] Address [address] [place] [address] Phone [phone] Care Team Providers Care Rn Informatics Name Role Phone Jose Yi DO Primary Care Provider [phone] Encounter Details Date Type Department Care Team (Latest Contact Info) Description 07/04/2024 11:47 AM EST - 07/04/2024 11:59 PM EST Hospital Encounter Radiology Film File [address] [place] [address] Arrived Discharge Disposition: Home - Self Care Allergies No known active allergiesdocumented as of this encounter (statuses as of 07/05/2024) Medications Medication Sig Dispensed Refills Start Date End Date Status Nystatin 659304 UNIT/GM External Powder (Nystop) Apply topically to affected area 3 times a day. Apply to buttocks 15 g 5 07/15/2022 Active Fluticasone Propionate 50 MCG/ACT Nasal Suspension (Flonase) Administer 2 Sprays into each nostril in the morning. opp hand. 16 g 1 11/25/2022 Active Nystatin-Triamcinolon e 998591-1.1 UNIT/GM-% External Cream (Mycolog) apply topically to [...] as of this encounter (statuses as of 07/05/2024) Active Problems Problem Noted Date Diagnosed Date Acute right-sided thoracic back pain 05/03/2024 Plaque psoriasis 08/18/2023 Pure hypercholesterolemia 11/28/2021 ALEXUS (generalized anxiety disorder) 11/26/2020 Prediabetes 07/08/2020 Overview: Per Prediabetes protocol Psoriasis 07/06/2019 Actinic keratosis 10/19/2013 Overview: Efudex (10/2019, 10/20 to scalp) Other seborrheic keratosis 10/19/2013 HSV infection 10/19/2013 documented as of this encounter (statuses as of 07/05/2024) Immunizations Name Administration Dates Next Due COVID-19 [...] No 12/27/2023 Does the household have a [facility] source of income? (Household - for ages [...] on file documented as of this encounter Plan of Treatment Upcoming Encounters Date Type Department Care Team (Late st Contact Info) Description 10/17/2024 9:20 AM EST Office Visit Family Practice [facility] [address] [facility] [place] [address] Jose Yi, DO [address] [facility] [place] [address] 04/12/2025 10:20 AM EDT Office Visit Dermatology, [place] [address] [address] [facility] [place] [address] Mojgan Geiger PA-C [address] [place] [address] [place] [address] 06/05/2025 10:00 AM EDT Office Visit Rheumatology [address] [place] [address] Ami Rodriguez CRNP [address] [place] [address] Scheduled Procedures Name Priority Associated Diagnoses Date/Ti me COLONOSCOPY FLEXIBLE PROXIMA L DIAGNOSTIC Recall History of colonic polyps Health Maintenance Due Date Last Done Comments Cologuard 01/11/2001 Fecal Occult Blood Test 01/11/2001 Sigmoidoscopy 01/11/2001 Zoster Vaccines (1 of 2) 01/11/2006 Adult Wellness Visit 01/11/2022 Pneumococcal Vaccine: 65+ Years (2 of 2 - PCV) 06/09/2022 06/09/2021 COVID-19 Vaccine ( season) 2024 07/03/2021, 10/27/2020, 09/22/2020 Influenza Vaccine (FLU shot) (#1) 2024 06/24/2023, 05/29/2022, 05/29/2022, Additional history exists Depression Screening 12/26/2024 12/27/2023 HbA1c 03/22/2025 03/22/2024, 07/30, 07/15/2022, Additional history exists DTap/Tdap Vaccines (3 - Td or Tdap) 10/01/2026 10/01/2016, 01/28/2001 Lipid Panel 08/11/2028 08/11/2023, 06/30, 12/10/2021, Additional history exists Colonoscopy 01/02/2029 01/03/2024, 05/01/2024, 06/24/2018, Additional history exists Colorectal Cancer Screening [...] this encounter Medical Devices Implanted Type Area Landscape Nurseryman Device Identifier Shelf Expiration Date Model / Serial / Lot Duraclip 16mm Xlg Repostn - [id number] Implanted:Qty: 1 on 01/03/2024 by Chantel Mai MD at ENDOSCOPY [facility] [employer] 10/17/2024 [id number] / / Description:placed on ICV po lypectomy site documented as of this encounter Procedures Procedure Name Priority Date/Time Associated Diagnosis Comments DERM EXAM - DERM (IMAGES ONLY, NO REPORT) Routine 07/04/2024 11:47 AM EST Scalp psoriasis Psoriasis H/O actinic keratosis documented in this encounter Results * DERM EXAM - DERM (IMAGES ONLY, NO REPORT) (07/04/2024 11:47 AM EST) Narrative Scheduling, Silent - 07/04/2024 11:47 AM EST This is an imaging study not interpreted or resulted by a [facility] or [employer] contracted radiologist. Mojgan Geiger PA-C RADIOLOGY (RAD GENERAL) documented in this encounter Care Teams Rn Informatics Relationship Specialty Start Date End Date Jose Yi DO [address] [facility] [place], [place] [address] PCP - General Family Medicine 06/18/20 documented as of this encounter
--- OUTSIDE RECORDS SUMMARY | 2024-08-25 23:28 | External Medical Summary ---
Author Name Unknown Address Unknown Organization K01:[facility] - [address] [place] [address] Laboratory Report Ordering Provider Test Date Status THIAGOFranceBOLANOS 06/20/2024 11:35:02 Final Observation Date Value Abnormality Reference (Units ) Status Uric Acid 06/20/2024 11:35:02 5.1 3.4-7.0 (m g/dL) Final Performing Location [facility] - [address] [place] [address]
--- OUTSIDE RECORDS SUMMARY | 2024-08-25 23:28 | External Medical Summary | Summary of Care ---
Author Name Unknown Organization [facility] Address [address] [place] [address] Phone [phone] Care Team Providers Care Drain Cleaner Plumber Name Role Phone Jose Yi DO Primary Care Provider [phone] Reason for Visit * Reason Comments Outpatient Testing Encounter Details Date Type Department Care Team (Late st Contact Info) Description 06/20/2024 11:30 AM EDT Laboratory Laboratory [facility] [address] [place] [id number] [facility] [address] [place] [address] Polyarthralgia Allergies No known active allergiesdocumented as of this encounter (statuses as of 06/20/2024) Medications Medication Sig Dispensed Refills Start Date End Date Status Nystatin 649633 UNIT/GM External Powder (Nystop) Apply topically to affected area 3 times a day. Apply to buttocks 15 g 5 07/15/2022 Active Fluticasone Propionate 50 MCG/ACT Nasal Suspension (Flonase) Administer 2 Sprays into each nostril in the morning. opp hand. 16 g 1 11/25/2022 Active Nystatin-Triamcinolon e 411387-7.1 UNIT/GM-% External Cream (Mycolog) apply topically to [...] as of this encounter (statuses as of 06/20/2024) Active Problems Problem Noted Date Diagnosed Date Acute right-sided thoracic back pain 05/03/2024 Plaque psoriasis 08/18/2023 Pure hypercholesterolemia 11/28/2021 ALEXUS (generalized anxiety disorder) 11/26/2020 Prediabetes 07/08/2020 Overview: Per Prediabetes protocol Psoriasis 07/06/2019 Actinic keratosis 10/19/2013 Overview: Efudex (10/2019, 10/20 to scalp) Other seborrheic keratosis 10/19/2013 HSV infection 10/19/2013 documented as of this encounter (statuses as of 06/20/2024) Immunizations Name Administration Dates Next Due COVID-19 [...] Description 07/04/2024 11:40 AM EST [address] [address] Mojgan Geiger PA-C [address] [place] [address] [place] [address] 10/17/2024 9:20 AM EST Office Visit Family Practice [facility] [address] [place] [address] Jose Yi, DO [address] [facility] [place] [address] 04/12/2025 10:20 AM EDT Office Visit Dermatology, [place] [address] [facility] [place] [address] Mojgan Geiger PA-C [address] [place] [address] [place] [address] 06/05/2025 10:00 AM EDT Office Visit Rheumatology [place] [id number] [facility] [place] [address] Ami Rodriguez CRNP [address] [place] [address] Pending Results Name Type Priority Associated Diagnoses Date /Time ERYTHROCYTE SEDIMENTATION RATE (ESR) Lab Routine Polyarthralgia 06/20/2024 11:35 AM EDT CRP (INFLAMMATORY MARKER) Lab Routine Polyarthralgia 06/20/2024 11:35 AM EDT URIC ACID Lab Routine Polyarthralgia 06/20/2024 11:35 AM EDT Scheduled Procedures Name Priority Associated Diagnoses Date/Ti [...] this encounter Medical Devices Implanted Type Area Peace Officer Device Identifier Shelf Expiration Date Model / Serial / Lot Duraclip 16mm Xlg Repostn - [id number] Implanted:Qty: 1 on 01/03/2024 by Chantel Mai MD at END[facility]COPY [facility] [employer] [facility] 10/17/2024 [id number] / / Description:placed on ICV po lypectomy site documented as of this encounter Visit Diagnoses Diagnosis Polyarthralgia Pain in joint, multiple sites documented in this encounter Care Teams Drain Cleaner Plumber Relationship Specialty Start Date End Date Jose Yi DO [address] [place] [address] PCP - General Family Medicine 06/18/20 documented as of this encounter
--- OUTSIDE RECORDS SUMMARY | 2024-08-25 23:28 | External Medical Summary | Summary of Care ---
Author Name Unknown Organization [facility] Address [address] [place] [address] Phone [phone] Care Team Providers Care Ash Conveyor Operator Name Role Phone Jose iY DO Primary Care Provider [phone] Reason for Visit * Reason Comments Follow Up Encounter Details Date Type Department Care Team (Late st Contact Info) Description 07/04/2024 11:40 AM EST Office Visit Dermatology[address] [address] Mojgan Geiger PA-C [address] [place] [address] [place] [address] Psoriasis*; Scalp psoriasis; H/O actinic keratosis Allergies No known active allergiesdocumented as of this encounter (statuses as of 07/04/2024) Medications Medication Sig Dispensed Refills Start Date End Date Status Nystatin 416911 UNIT/GM External Powder (Nystop) Apply topically to affected area 3 times a day. Apply to buttocks 15 g 5 07/15/2022 Active Fluticasone Propionate 50 MCG/ACT Nasal Suspension (Flonase) Administer 2 Sprays into each nostril in the morning. opp hand. 16 g 1 11/25/2022 Active Nystatin-Triamcinolon e 695444-2.1 UNIT/GM-% External Cream (Mycolog) apply topically to [...] as of this encounter (statuses as of 07/04/2024) Active Problems Problem Noted Date Diagnosed Date Acute right-sided thoracic back pain 05/03/2024 Plaque psoriasis 08/18/2023 Pure hypercholesterolemia 11/28/2021 ALEXUS (generalized anxiety disorder) 11/26/2020 Prediabetes 07/08/2020 Overview: Per Prediabetes protocol Psoriasis 07/06/2019 Actinic keratosis 10/19/2013 Overview: Efudex (10/2019, 10/20 to scalp) Other seborrheic keratosis 10/19/2013 HSV infection 10/19/2013 documented as of this encounter (statuses as of 07/04/2024) Immunizations Name Administration Dates Next Due COVID-19 [...] No 12/27/2023 Does the household have a [facility] source of income? (Household - for [...] on file documented as of this encounter Progress Notes * Mojgan Geiger PA-C - 07/04/2024 11:40 AM EST Patient was seen on 05/30/24 for psoriasis 6 month follow up and patient was not sure why this appointment was still present on his My Chart schedule-it looks like it was it was never cancelled when [place] appointment was scheduled. I had no contact with the patient and this appointment will be a "no charge". F/u in 5-6 more months for condition. Mojgan MAGANA PA-C documented in this encounter Plan of Treatment Upcoming Encounters Date Type Department Care Team (Late st Contact Info) Description 10/17/2024 9:20 AM EST Office Visit Family Practice [facility] [place] [address] [place] [address] Jose Yi DO [address] [place] [address] 04/12/2025 10:20 AM EDT [place] [address] [facility] [address] Mojgan Geiger PA-C [address] [place] [address] [place] [address] 06/05/2025 10:00 AM EDT Office Visit Rheumatology [facility] [address] [place] [address] Ami Rodriguez CRNP [address] [place] [address] Scheduled Procedures Name Priority Associated Diagnoses Date/Ti [...] 12/10/2021, Additional history exists Colonoscopy 01/02/2029 01/03/2024, 05/0 01/2024, 06/24/2018, Additional history exists Colorectal Cancer [...] this encounter Medical Devices Implanted Type Area Loom Starter Device Identifier Shelf Expiration Date Model / Serial / Lot Duraclip 16mm Xlg Repostn - [id number] Implanted:Qty: 1 on 01/03/2024 by Chantel Mai MD at [facility] [id number] / / Description:placed on ICV po lypectomy [...] study not interpreted or resulted by a [facility] or [employer] contracted radiologist. Mojgan Geiger PA-C RADIOLOGY ([facility]) documented in this encounter Visit Diagnoses Diagnosis Psoriasis- Primary Other psoriasis Scalp psoriasis Other psoriasis H/O actinic keratosis Personal history of diseases of skin and subcutaneous tissue documented in this encounter Care Teams Ash Conveyor Operator Relationship Specialty Start Date End Date Jose Yi DO [address] [place], [place] [id number] PCP - General Family Medicine 06/18/20 documented as of this encounter
--- OUTSIDE RECORDS SUMMARY | 2024-08-25 23:29 | External Medical Summary | Summary of Care ---
Author Name Unknown Organization [facility] Address [address] [place] [address] Phone [phone] Care Team Providers Care Hospital Pharmacy Technician Name Role Phone Jose Yi DO Primary Care Provider [phone] Encounter Details Date Type Department Care Team (Late st Contact Info) Description 06/07/2024 Orders Only PATIENT PORTAL DO NOT DELETE THIS DEPT USED BY [place] M[place]DE[place] [id number] Allergies No known active allergiesdocumented as of this encounter (statuses as of 06/07/2024) Medications Medication Sig Dispensed Refills Start Date End Date Status Nystatin 397917 UNIT/GM External Powder (Nystop) Apply topically to affected area 3 times a day. Apply to buttocks 15 g 5 07/15/2022 Active Fluticasone Propionate 50 MCG/ACT Nasal Suspension (Flonase) Administer 2 Sprays into each nostril in the morning. opp hand. 16 g 1 11/25/2022 Active Nystatin-Triamcinolon e 700683-0.1 UNIT/GM-% External Cream (Mycolog) apply topically to [...] as of this encounter (statuses as of 06/07/2024) Active Problems Problem Noted Date Diagnosed Date Acute right-sided thoracic back pain 05/03/2024 Plaque psoriasis 08/18/2023 Pure hypercholesterolemia 11/28/2021 ALEXUS (generalized anxiety disorder) 11/26/2020 Prediabetes 07/08/2020 Overview: Per Prediabetes protocol Psoriasis 07/06/2019 Actinic keratosis 10/19/2013 Overview: Efudex (10/2019, 10/20 to scalp) Other seborrheic keratosis 10/19/2013 HSV infection 10/19/2013 documented as of this encounter (statuses as of 06/07/2024) Immunizations Name Administration Dates Next Due COVID-19 [...] Description 07/04/2024 11:40 AM EST Office Visit Dermatology[address] [address] Mojgan Geiger PA-C [address] [place] [address] [place] [address] 10/17/2024 9:20 AM EST Office Visit Family Practice [facility] [place] [address] [facility] [place] [address] oJse Yi DO [address] [facility] [place] [address] 04/12/2025 10:20 AM EDT Office Visit [place] [address] [place] [address] Mojgan Geiger PA-C [address] [place] [address] [place] [address] 06/05/2025 10:00 AM EDT Office Visit Rheumatology [facility] [address] [place] [address] Ami Rodriguez CRNP [address] [place] [address] Scheduled Procedures Name Priority Associated Diagnoses Date/Ti [...] this encounter Medical Devices Implanted Type Area Insulation Worker Furnace Installer Device Identifier Shelf Expiration Date Model / Serial / Lot Duraclip 16mm Xlg Repostn - [id number] Implanted:Qty: 1 on 01/03/2024 by Chantel Mai MD at [facility]COPY [facility] [employer] [facility] 10/17/2024 [id number] / / Description:placed on ICV po lypectomy site documented as of this encounter Care Teams Hospital Pharmacy Technician Relationship Specialty Start Date End Date Jose Yi DO [address] [place] [address] PCP - General Family Medicine 06/18/20 documented as of this encounter
--- OUTSIDE RECORDS SUMMARY | 2024-08-25 23:29 | External Medical Summary | Summary of Care ---
Author Name Unknown Organization [facility] Address [address] [place] [address] Phone [phone] Care Team Providers Care Stockroom Helper Name Role Phone Jose Yi DO Primary Care Provider [phone] Reason for Referral * Evaluate & Treat - Unlimited Visits (Within 30 days (routine)) - Authorized Specialty Diagnoses / Procedures Referred By Elie hurley Referred To Contact Rheumatology Diagnoses Scalp psoriasis Psoriasis Mojgan Geiger PA-C [address] [place] [address] [place] [address] Referral ID Status Reason Start Date Expiration Date Visits Requested Visits Authorized [id number] Authorized Specialty Services Required 05/30/[phone] Question Answer Referral Priority Within 30 days (routine) Where should this appointment be scheduled? [facility] Reason for referral: Inflammatory arthritis/Autoimmune or Connective Tissue Diseases Comments R/o PsA , hx of psoriasis Reason for Visit * Reason Comments Follow Up Pt here for 6 month f/u for psoriasis. States it has been better with the sun/summertime. Encounter Details Date Type Department Care Team ([facility] st Contact Info) Description 05/30/2024 10:00 AM EDT Office Visit Dermatology[address] [place] [id number] Mojgan Geiger PA-C [address] [place] [address] [place] [address] Psoriasis*; Scalp psoriasis Allergies No known active allergiesdocumented as of this encounter (statuses as of 05/30/2024) Medications Medication Sig Dispensed Refills Start Date End Date Status Nystatin 136863 UNIT/GM External Powder (Nystop) Apply topically to affected area 3 times a day. Apply to buttocks 15 g 5 07/15/2022 Active Fluticasone Propionate 50 MCG/ACT Nasal Suspension (Flonase) Administer 2 Sprays into each nostril in the morning. opp hand. 16 g 1 11/25/2022 Active Nystatin-Triamcinolo ne 895516-5.1 UNIT/GM-% External Cream (Mycolog) apply topically to affected area twice a day for 14 days 12/04/2022 Active Omeprazole 20 MG Oral Capsule Delayed Release (PriLOSEC)Indication s:Gastroesophageal reflux disease, unspecified whether esophagitis present,Abdominal pain, epigastric Take 1 Capsule by mouth in the morning. 1 hour before the first meal of the day. 90 Capsule 1 05/17/2023 Active Additional Information Patient not taking.Reported on 12/27/2023 Tacrolimus 0.1 % External Ointment (Protopic)Indication s:Psoriasis,Scalp psoriasis Apply to psoriasis spots on scalp/arms/legs/t runk 2x daily (or more if itchy instead of scratching) until resolved 100 g 3 08/10/2023 Active Rosuvastatin Calcium 5 MG Oral Tablet (Crestor)Indications :Other hyperlipidemia TAKE 1 TABLET BY MOUTH EVERY MORNING 90 Tablet 3 02/13/2024 Active valACYclovir HCl 1 GM Oral Tablet (Valtrex)Indications :Herpes simplex infection of skin take 1 tablet by mouth once daily for 5 days DURING SKIN FLARES 15 Tablet 1 02/23/2024 Active Betamethasone Dipropionate 0.05 % External OintmentIndications: Psoriasis,Scalp psoriasis APPLY 2 TIMES A DAY OR MORE IF ITCHY INSTEAD OF SCRATING, APPLY TO PSORIASIS ON TRUNK ARMS LEGS UNTIL RESOLVED ALONG WITH LIGHT THERAPY 100 g 2 02/23/2024 Active ALPRAZolam 0.5 MG Oral Tablet (xaNAX)Indications:G AD (generalized anxiety disorder) Take 0.5 Tablets by mouth daily as needed for Anxiety. 20 Tablet 1 03/27/2024 Active Cyclobenzaprine HCl 5 MG Oral Tablet (Flexeril) Take 1 Tablet by mouth in the morning and 1 Tablet at noon and 1 Tablet before bedtime. 30 Tablet 05/03/2024 Active documented as of this encounter (statuses as of 05/30/2024) Active Problems Problem Noted Date Diagnosed Date Acute right-sided thoracic back pain 05/03/2024 Plaque psoriasis 08/18/2023 Pure hypercholesterolemia 11/28/2021 ALEXUS (generalized anxiety disorder) 11/26/2020 Prediabetes 07/08/2020 Overview: Per Prediabetes protocol Psoriasis 07/06/2019 Actinic keratosis 10/19/2013 Overview: Efudex (10/2019, 10/20 to scalp) Other seborrheic keratosis 10/19/2013 HSV infection 10/19/2013 documented as of this encounter (statuses as of 05/30/2024) Immunizations Name Administration Dates Next Due COVID-19 [...] on file documented as of this encounter Patient Instructions * Patient Instructions* Mojgan Geiger PA-C - 05/30/2024 10:25 AM EDT The side effects of chronic topical steroid use were discussed with patient and include but are notlimited to telangiectasia (broken blood vessels), striae (stretch gorman), atrophy (thin skin), purpura (bruising), allergic contact dermatitis, acneiform eruptions and medicine addiction (rebound rash after cessation), cataracts, suppression of the bodys ability to create its own cortisol, weight gain, poor height growth, and high blood sugar. Advocated avoidance of use nears eyes (glaucoma and cataracts) and skin folds (enhanced effect = atrophy) unless otherwise directed. Advised to use the medication only as needed. Our plan will alwaysbe to use the lowest potency possible and to use a regimen that employs intermittent rather than constant use of topical steroids. If the rash clears then stop and transition to CERAVE CREAM for maintenance. documented in this encounter Progress Notes * Juan R Gorman MD - 05/30/2024 2:57 PM EDT I have seen and examined the patient via teledermatology review of chart note and photos with Mojgan Geiger PA-C. I have reviewed and agree with the assessment and plan. * Mojgan Geiger PA-C - 05/30/2024 10:00 AM EDT SUBJECTIVE: History of Present Illness: Dlalas Hook is a 69 year old male seen today for follow up of psoriasis. Previous appointment date: 12/23/2023 Last attempted treatments include: psoriasis treatment (has not restarted home light therapy since was out in sun), betamethasone dip ointment (only prn) and tacrolimus 0.1% ointment BID (not using) Full skin exam 12/21 Psoriasis seems stable, does not need home light or topicals during the summer. Having some more joint pains in hips and other areas. REVIEW OF SYSTEMS: SKIN: No other new or changing moles. HEME/LYMPH: No new or enlarging lumps or bumps. CONSTITUTIONAL: No nausea, vomiting, fevers, chills, diarrhea. No recent unintended weight loss, night sweats, appetite or malaise. RESP: negative MSK/EXT: Negative or as per HPI GI: negative CV: Negative or as per HPI Rest of systems are negative or as per HPI SKIN CANCER HX: NONE, actinic keratoses (Efudex scalp 10/2019, 10/2020) Reviewed, same day as visit, 0 [facility] Dermatology lab work(s)/pathology report(s) as well as those sent by referring provider prior to seeing pt. MEDICA TIONS: Current Outpatient Medications Medication Sig Dispense Refill Nystatin 553955 UNIT/GM External Powder (Nystop) Apply topically to affected area 3 times a day. Apply to buttocks 15 g 5 Fluticasone Propionate 50 MCG/ACT Nasal Suspension (Flonase) Administer 2 Sprays into each nostril in the morning. opp hand. 16 g 1 Nystatin-Triamcinolone 826835-9.1 UNIT/GM-% External Cream (Mycolog) apply topically to affected area twice a day for 14 days Omeprazole 20 MG Oral Capsule Delayed Release (PriLOSEC) Take 1 Capsule by mouth in the morning. 1 hour before the first meal of the day. (Patient not taking: Reported on 12/27/2023) 90 Capsule 1 Tacrolimus 0.1 % External Ointment (Protopic) Apply to psoriasis spots on scalp/arms/legs/trunk 2x daily (or more if itchy instead of scratching) until resolved 100 g 3 Rosuvastatin Calcium 5 MG Oral Tablet (Crestor) TAKE 1 TABLET BY MOUTH EVERY MORNING 90 Tablet 3 valACYclovir HCl 1 GM Oral Tablet (Valtrex) take 1 tablet by mouth once daily for 5 days DURING SKIN FLARES 15 Tablet 1 Betamethasone Dipropionate 0.05 % External Ointment APPLY 2 TIMES A DAY OR MORE IF ITCHY INSTEAD OFSCRATING, APPLY TO PSORIASIS ON TRUNK ARMS LEGS UNTIL RESOLVED ALONG WITH LIGHT THERAPY 100 g 2 ALPRAZolam 0.5 MG Oral Tablet (xaNAX) Take 0.5 Tablets by mouth daily as needed for Anxiety. 20 Tablet 1 Cyclobenzaprine HCl 5 MG Oral Tablet (Flexeril) Take 1 Tablet by mouth in the morning and 1 Tablet at noon and 1 Tablet before bedtime. 30 Tablet 0 No current facility-administered medications for this visit. ALLERG IES: Patient has noknown allergies. OBJECT MATT: GEN: alert, no distress, appears oriented, pleasant, and cooperative. SKIN: Detailed exam of hair, face including lids and lips, neck, chest, abdomen, back, bilateral upper ext. (arm, hand, fingers), bilateral lower ext. (leg, foot, toes), and palpation of scalp completed: 1. Scalp/trunk/bilat arms and legs-Scattered ill and well defined scaled, mostly thinned pink-red plaques with pitting of nails, thicker plaques on lower legs. ASSESS MENT/PLAN: 1. Plaque/scalp/nail psoriasis on scalp/trunk/bilat arms and legs-BSA: 10-25%, Special Site: Scalp:severe and Flexures; moderate; Status: worse . -Restart home based light therapy, discussed following the protocol. -Continue betamethasone dip ointment prn and tacrolimus 0.1% ointment BID (as desired) then titratedown to least amount needed for maintenance, plastic wrap overtop of betamethasone ointment to thinout plaques more quickly. -Due to increased joint pains, rheumatology referral placed to determine if psoriatic in nature. -Side effects of medication discussed and treatment regimen written and printed on checkout sheet. Patient alone today. Photo(s) of #1 taken, pt verbally consented to having photo(s) taken. Follow-up: 6 months for psoriasis/full skin exam Applicable photos (if any) and chart reviewed by Dr. Juan R Gorman. Presumed diagnoses, expected natural histories, and management options discussed with the patient at length. Questions were addressed and anticipatory guidance provided. They were instructed to contact me if additional questions, concerns, or problems develop in the interim. -There were no barriers to learning and no other pain was related to today's visit. The patient and/or person accompanying patient demonstrates understanding of the visit and treatment. Mojgan Geiger PA-C 05/30/2024 10:22 AM Dermatology, [place] [address] [facility] [place] [address] documented in this encounter Nursing Notes * Shell Covarrubias LPN - 05/30/2024 10:13 AM EDT Patient identified by full name and date of Chief Complaint Patient presents with Follow Up Pt here for 6 month f/u for psoriasis. States it has been better with the sun/summertime. documented in this encounter Plan of Treatment Upcoming Encounters Date Type Department Care Team (Late st Contact Info) Description 06/05/2024 11:00 AM EDT Office Visit Rheumatology [place] [id number] [facility] [place], [place] [address] Ami Rodriguez CRNP [facility] [place] [address] 07/04/2024 11:40 AM EST Office Visit [facility]atology, [place] [address] [facility] [address] Mojgan Geiger PA-C [address] [place] [address] [place] [address] 10/17/2024 9:20 AM EST Office Visit Family Practice [facility] [place] [address] [facility] [place] [address] Jose Yi DO [address] [facility] [place] [address] 04/12/2025 10:20 AM EDT Office Visit [facility]atology, [place] [address] [facility] [address] Mojgan Geiger PA-C [address] [place] [address] [place] [address] Scheduled Procedures Name Priority Associated Diagnoses Date/Ti me COLONOSCOPY FLEXIBLE PROXIMA L DIAGNOSTIC Recall History of colonic polyps Scheduled Referrals Name Type Priority Associated Diagnoses Order Schedule RHEUMATOLOGY REFERRAL OP Referral Within 30 days (routine) Scalp psoriasis Psoriasis Ordered: 05/30/2024 Health Maintenance Due Date Last Done Comments [...] this encounter Medical Devices Implanted Type Area Graduate Assistant Athletic Trainer Device Identifier Shelf Expiration Date Model / Serial / Lot Duraclip 16mm Xlg Repostn - [id number] Implanted:Qty: 1 on 01/03/2024 by Chantel Mai MD at ENDOSCOPY [facility] CORD:[employer] [facility] 10/17/2024 [id number] / / Description:placed on ICV po lypectomy site documented as of this encounter Procedures Procedure Name Priority Date/Time Associated Diagnosis Comments DERM EXAM - DERM (IMAGES ONLY, NO REPORT) Routine 05/30/2024 10:30 AM EDT Scalp psoriasis Psoriasis documented in this encounter Results * DERM EXAM - DERM (IMAGES ONLY, NO REPORT) (05/30/2024 10:30 AM EDT) Narrative Scheduling, Silent - 05/30/2024 10:30 AM EDT This is an imaging study not interpreted or resulted by a [employer] or [employer] contracted radiologist. Mojgan Geiger PA-C RADIOLOGY ([facility]) documented in this encounter Visit Diagnoses Diagnosis Psoriasis- Primary Other psoriasis Scalp psoriasis Other psoriasis documented in this encounter Care Teams Stockroom Helper Relationship Specialty Start Date End Date Jose Yi DO [address] [place] [address] PCP - General Family Medicine 06/18/20 documented as of this encounter
--- OUTSIDE RECORDS SUMMARY | 2024-08-25 23:29 | External Medical Summary | Summary of Care ---
Author Name Unknown Organization [facility] Address [address] [place] [address] Phone [phone] Care Team Providers Care Customer Support Engineer Name Role Phone Jose Yi DO Primary Care Provider [phone] Encounter Details Date Type Department Care Team (Latest Contact Info) Description 05/30/2024 10:30 AM EDT - 05/30/2024 11:59 PM EDT Hospital Encounter Radiology Film File [address] [place] [address] Arrived Discharge Disposition: Home - Self Care Allergies No known active allergiesdocumented as of this encounter (statuses as of 05/31/2024) Medications Medication Sig Dispensed Refills Start Date End Date Status Nystatin 297824 UNIT/GM External Powder (Nystop) Apply topically to affected area 3 times a day. Apply to buttocks 15 g 5 07/15/2022 Active Fluticasone Propionate 50 MCG/ACT Nasal Suspension (Flonase) Administer 2 Sprays into each nostril in the morning. opp hand. 16 g 1 11/25/2022 Active Nystatin-Triamcinolo ne 235327-1.1 UNIT/GM-% External Cream (Mycolog) apply topically to [...] as of this encounter (statuses as of 05/31/2024) Active Problems Problem Noted Date Diagnosed Date Acute right-sided thoracic back pain 05/03/2024 Plaque psoriasis 08/18/2023 Pure hypercholesterolemia 11/28/2021 ALEXUS (generalized anxiety disorder) 11/26/2020 Prediabetes 07/08/2020 Overview: Per Prediabetes protocol Psoriasis 07/06/2019 Actinic keratosis 10/19/2013 Overview: Efudex (10/2019, 10/20 to scalp) Other seborrheic keratosis 10/19/2013 HSV infection 10/19/2013 documented as of this encounter (statuses as of 05/31/2024) Immunizations Name Administration Dates Next Due COVID-19 [...] 06/05/2024 11:00 AM EDT Office Visit Rheumatology [place] [phone] [facility] [place], [place] [address] Ami Rodriguez CRNP [facility] [place] [address] 07/04/2024 11:40 AM EST Office [place] [address] [place] [address] Mojgan Geiger PA-C [address] [place] [address] [place] [address] 10/17/2024 9:20 AM EST Office Visit Family Practice [facility] [address] [facility] [place] [address] Jose Yi, [address] [facility] [place] [address] 04/12/2025 10:20 AM EDT [facility] [place] [address] [facility] [address] Mojgan Geiger PA-C [address] [place] [address] [place] [address] Scheduled Procedures Name Priority Associated Diagnoses Date/Ti [...] this encounter Medical Devices Implanted Type Area Stuntman Device Identifier Shelf Expiration Date Model / Serial / Lot Duraclip 16mm Xlg Repostn - [id number] Implanted:Qty: 1 on 01/03/2024 by Chantel Mai MD at [facility]OSCOPY [facility] [email or web address] [facility] 10/17/2024 [id number] / / Description:placed on ICV po lypectomy [...] interpreted or resulted by a [facility] or [facility] contracted radiologist. Mojgan Geiger PA-C RADIOLOGY ([facility]) documented in this encounter Care Teams Customer Support Engineer Relationship Specialty Start Date End Date Jose Yi DO [address] [place] [address] PCP - General Family Medicine 06/18/20 documented as of this encounter
--- OUTSIDE RECORDS SUMMARY | 2024-08-25 23:29 | External Medical Summary | Summary of Care ---
Author Name Unknown Organization [facility] Address [address] [place] [address] Phone [phone] Care Team Providers Care Spot Machine Operator Name Role Phone Jose Yi DO Primary Care Provider [phone] Reason for Visit * Reason Comments Acute Encounter Details Date Type Department Care Team (Late st Contact Info) Description 05/03/2024 12:40 PM EDT Telemedicine Family Practice [facility] [address] [facility] [place] [address] Barbara Carpenter CRNP [address] [facility] [place] [address] Acute right-sided thoracic back pain* Allergies No known active allergiesdocumented as of this encounter (statuses as of 05/03/2024) Medications Medication Sig Dispensed Refills Start Date End Date Status Nystatin 272350 UNIT/GM External Powder (Nystop) Apply topically to affected area 3 times a day. Apply to buttocks 15 g 5 07/15/2022 Active Fluticasone Propionate 50 MCG/ACT Nasal Suspension (Flonase) Administer 2 Sprays into each nostril in the morning. opp hand. 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 (Household - for [...] as of this encounter Progress Notes * Barbara Carpenter CRNP - 05/03/2024 12:40 PM EDT Acute Telemed Family Medicine Visit Patient location: HOME. I was in a hospital or clinic location. After connecting through televideo,patient was verified with two unique identifiers. Patient (or authorized legal inside account representative) was then informed that this was a Telemedicine visit and being conducted confidentially over secure lines. Methods to assure confidentiality were taken. Patient acknowledged consent and understanding of pr ivacy and security of the Telemedicine visit. The patient agreed to participate. CC: ride side pain History of Present Illness: Dallas Hook is a 69 year old male presenting with complaints of right middle back pain. This pain was improved by motrin. He did recently go fishing(casting aggressively) Feels like a continuous stiffness. Worse with certain movement -fever -chills -dysuria -hematuria -loss of bowel or bladder function Social History Socioeconomic History Marital status: Spouse name: Not on file Number of children: Not on file Years of education: Not on file Highest education level: Not on file Occupational History Not on file Tobacco Use Smoking status: Never Passive exposure: Past Smokeless tobacco: Never Vaping Use Vaping status: Never Used Substance and Sexual Activity Alcohol use: Yes Comment: occ Drug use: Never Sexual activity: Not on file Other Topics Concern Not on file Social History Narrative Not on file Social Determinants of Health Financial Resource Strain: Low Risk (12/27/2023) Financial Resource Strain Do you have any trouble paying for your medications, or do you think you might in the future? (Adult - for ages 18 years and over): No Does your family have trouble paying for medicine? (Household - for ages 0-17 years): Not on file Food Insecurity: No Food Insecurity (12/27/2023) Food Insecurity Do you need food for this week? (Adult - for ages 18 years and over): No Are you able to get enough food for your family? (Household - for ages 0-17 years): Not on file Does your family need food this week? (Household - for ages 0-17 years): Not on file Do you always have enough food for your family? (Household - for ages 0-17 years): Not on file Transportation Needs: No Transportation Needs (12/27/2023) Transportation Needs Do you have trouble getting a ride to medical visits or work? (Adult - for ages 18 years and over):Never True Does your family have a hard time getting a ride to doctors visits? (Household - for ages 0-17 years): Not on file Has lack of transportation kept you from medical appointments, meetings, work, or from getting things needed for daily living? Check all that apply. (Adult - for ages 18 years and over): Not on file Do you (or your family) have trouble finding or paying for a ride (transportation)? (Household - for ages 0-17 years): Not on file Social Connections: Socially Integrated (12/27/2023) Social Connections How often do you feel lonely or isolated from those around you? (Adult - for ages 18 years and over): Never Housing Stability: Low Risk (12/27/2023) Housing Stability Do you currently live in a [place] [facility] [place] or have no steady place to sleep at night? (Adult - for ages 18 years and over): No Do you think you are at risk of becoming homeless? (Adult - for ages 18 years and over): No Does your family worry about paying for your home or becoming homeless? (Household - for ages 0-17 years): Not on file Are you homeless or worried that you might be in the future? (Adult - for ages 18 years and over): Not on file Are you (or your family) homeless or worried that you might be in the future? (Household - for ages0-17 years): Not on file PMH: Past Medical History: Diagnosis Date Hyperlipemia Past Surgical History: Procedure Laterality Date COLONOSCOPY, DIAGNOSTIC (RECTUM) 09/10/2008 repeat in 10 yrs COLONOSCOPY, DIAGNOSTIC (RECTUM) 01/03/2024 biopsies show inflammatory tissue/recall 5 years/COLONOSCOPY FLEXIBLE PROXIMAL DIAGNOSTIC performedby Chantel Mai MD at [facility] Current Outpatient Medications Medication Sig Dispense Refill ALPRAZolam 0.5 MG Oral Tablet (xaNAX) Take [...] taking: Reported on 12/27/2023) 90 Capsule 1 Nystatin-Triamcinolone 678987-2.1 UNIT/GM-% External Cream (Mycolog) apply topically to affected area twice a day for 14 days Fluticasone Propionate 50 MCG/ACT Nasal Suspension (Flonase) Administer 2 Sprays into each nostril in the morning. opp hand. 16 g 1 Nystatin 816358 UNIT/GM External Powder (Nystop) Apply topically to affected area 3 times a day. Apply to buttocks 15 g 5 No current facility-administered medications for this visit. Review of patient's allergies indicates: No Known Allergies Most Recent Immunizations Administered Date(s) Administered COVID-19 mRNA, LNP-s, No Preserve, 2-Dose Series (Moderna) 10/27/2020 COVID-19, mRNA, LNP-s, PF, Booster, 100mcg/0.5mg (Moderna) 07/03/2021 HepA Inact/HepB Recomb>=18yrs old 06/24/2013 Pneumococcal Polysaccharide PPV23 (Pneumovax) 06/09/2021 Seasonal Influenza Virus Vaccine, Unspecified Formulation 07/06/2019 Seasonal Influenza, PF, 6 M & above, IM , (FluLaval or Fluzone) 05/28/2020 Seasonal Influenza, Quadrivalent Hd (Fluzone Hd) 06/24/2023 TDAP (age 10 and older)(Boostrix) 10/01/2016 Review of Systems: Review of Systems Constitutional: Negative for fever. Respiratory: Negative for shortness of breath. Cardiovascular: Negative for chest pain. Gastrointestinal: Negative for abdominal pain, diarrhea, nausea and vomiting. Genitourinary: Negative for dysuria, frequency and hematuria. Musculoskeletal: Positive for back pain and myalgias. Neurological: Negative for numbness. Physical Exam: There were no vitals taken for this visit. Physical Exam HENT: Head: Normocephalic. Pulmonary: Effort: Pulmonary effort is normal. Neurological: General: No focal deficit present. Mental Status: He is alert and oriented to person, place, and time. Psychiatric: Mood and Affect: Mood normal. Behavior: Behavior normal. Thought Content: Thought content normal. Judgment: Judgment normal. Assessment and Plan: 1. Acute right-sided thoracic back pain No urinary symptoms Worse with movement Add flexeril Add motrin prn RECOMMEND IN PERSON EXAM IF NOT IMPROVED I have advised the patient to call our office incase of any worsening or new symptoms. I spent a total of 20-29 minutes (exact time 20 mins) on the date of service in preparation, delivery, and documentation of the care provided to Dallas Hook excluding any time spent in the performance of separately billed services. Mitchell, MSN, FAY [facility] documented in this encounter Plan of Treatment Upcoming Encounters Date Type Department Care Team (Late st Contact Info) Description 07/04/2024 11:40 AM EST Office Visit [facility] [address] [place] [address] Mojgan Geiger PA-C [address] [place] [address] [place] [address] 10/17/2024 9:20 AM EST Office Visit [facility] [address] [facility] [place] [address] Jose Yi, [address] [facility] [place] [address] 11/30/2024 11:00 AM EDT Office Visit Dermatology, [place] [address] [place] [address] Mojgan Geiger PA-C [address] [place] [address] [place] [address] 04/12/2025 10:20 AM EDT Office Visit Dermatology, [place] [address] [facility] [place] [address] Mojgan Geiger PA-C [address] [place] [address] [place] [address] Scheduled Procedures Name Priority Associated Diagnoses Date/Ti me COLONOSCOPY FLEXIBLE PROXIMA L DIAGNOSTIC Recall History of colonic polyps Health Maintenance Due Date Last Done Comments Zoster Vaccines (1 of 2) 01/11/1975 Cologuard 01/11/2001 Fecal Occult Blood Test 01/11/2001 Sigmoidoscopy 01/11/2001 Adult Wellness Visit 01/11/2022 Pneumococcal Vaccine: 65+ Years (2 of 2 - PCV) 06/09/2022 06/09/2021 COVID-19 Vaccine (4 - 2022- season) 2024 07/03/2021, 10/27/2020, 09/22/2020 Influenza Vaccine [...] this encounter Medical Devices Implanted Type Area Winter Intern Device Identifier Shelf Expiration Date Model / Serial / Lot Duraclip 16mm Xlg Repostn - [id number] Implanted:Qty: 1 on 01/03/2024 by Chantel Mai MD at [facility] [employer] 10/17/2024 [id number] / / Description:placed on ICV po lypectomy site documented as of this encounter Visit Diagnoses Diagnosis Acute right-sided thoracic back pain- Primary documented in this encounter Care Teams Spot Machine Operator Relationship Specialty Start Date End Date Jose Yi DO [address] [place] [address] PCP - General Family Medicine 06/18/20 documented as of this encounter
--- OUTSIDE RECORDS SUMMARY | 2024-08-25 23:29 | External Medical Summary | Summary of Care ---
Author Name Unknown Organization [facility] Address [address] [place] [address] Phone [phone] Care Team Providers Care Teacher'S Assistant Name Role Phone Jose Yi DO Primary Care Provider [phone] Reason for Referral * Evaluate & Treat - Unlimited Visits (Within 30 days (routine)) - Authorized Specialty Diagnoses / Procedures Referred By Elie hurley Referred To Contact Rheumatology Diagnoses Scalp psoriasis Psoriasis Mjogan Geiger PA-C [address] [place] [address] [place] [id number] Referral ID Status Reason Start Date Expiration Date Visits Requested Visits Authorized [id number] Authorized Specialty Services Required 05/30/2024 999 999 [...] Encounter Details Date Type Department Care Team ([facility] st Contact Info) Description 05/30/2024 10:00 AM EDT Office Visit Dermatology[address] [place] [id number] Mojgan Geiger PA-C [address] [place] [address] [place] [address] Psoriasis*; Scalp psoriasis Allergies No known active allergiesdocumented as of this encounter (statuses as of 05/30/2024) Medications Medication Sig Dispensed Refills Start Date End Date Status Nystatin 895291 UNIT/GM External Powder (Nystop) Apply topically to affected area 3 times a day. Apply to buttocks 15 g 5 07/15/2022 Active Fluticasone Propionate 50 MCG/ACT Nasal Suspension (Flonase) Administer 2 Sprays into each nostril in the morning. opp hand. 16 g 1 11/25/2022 Active Nystatin-Triamcinolo ne 054052-1.1 UNIT/GM-% External Cream (Mycolog) apply topically to [...] documented in this encounter Progress Notes * Mojgan Geiger PA-C - 05/30/2024 10:00 AM EDT SUBJECTIVE: History of Present Illness: Dallas Hook is [...] 10/2020) Reviewed, same day as visit, 0 [facility] Dermatology lab work(s)/pathology report(s) as well as those sent by referring provider prior to seeing pt. MEDICA TIONS: Current Outpatient Medications Medication Sig Dispense Refill Nystatin 392600 UNIT/GM External Powder (Nystop) Apply topically to affected area 3 times a day. Apply to buttocks 15 g 5 Fluticasone Propionate 50 MCG/ACT Nasal Suspension (Flonase) Administer 2 Sprays into each nostril in the morning. opp hand. 16 g 1 Nystatin-Triamcinolone 772824-2.1 UNIT/GM-% External Cream (Mycolog) apply topically to [...] treatment. Mojgan Geiger PA-C 05/30/2024 10:[address] [address] documented in this encounter Nursing Notes * [...] 06/05/2024 11:00 AM EDT Office Visit Rheumatology [facility] [address] [place] [address] Ami Rodriguez CRNP [address] [place] [address] 07/04/2024 11:40 AM EST Office Visit [facility], [place] [address] [facility] [address] Mojgan Geiger PA-C [address] [place] [address] [place] [address] 10/17/2024 9:20 AM EST Office Visit [facility] [place] [address] Jose Yi, DO [address] [facility] [place] [address] 04/12/2025 10:20 AM EDT Office Visit [facility], [place] [address] [facility] [address] Mojgan Geiger PA-C [address] [place] [address] [place] [address] Scheduled Procedures Name Priority Associated Diagnoses Date/Ti [...] this encounter Medical Devices Implanted Type Area Revit Drafter Device Identifier Shelf Expiration Date Model / Serial / Lot Duraclip 16mm Xlg Repostn - [id number] Implanted:Qty: 1 on 01/03/2024 by Chantel Mai MD at [facility] [employer] [facility] 10/17/2024 [id number] / / Description:placed on ICV po lypectomy [...] study not interpreted or resulted by a [employer] or [employer] contracted radiologist. Mojgan Geiger PA-C RADIOLOGY ([facility]) documented in this encounter Visit Diagnoses Diagnosis Psoriasis- Primary Other psoriasis Scalp psoriasis Other psoriasis documented in this encounter Care Teams Teacher'S Assistant Relationship Specialty Start Date End Date Jose Yi DO [address] [place] [address] PCP - General Family Medicine 06/18/20 documented as of this encounter
--- OUTSIDE RECORDS SUMMARY | 2024-08-25 23:29 | External Medical Summary | Summary of Care ---
Author Name Unknown Organization [facility] Address [address] [place] [address] Phone [phone] Care Team Providers Care Replacer Name Role Phone Jose Yi DO Primary Care Provider [phone] Reason for Referral * Evaluate & Treat - Unlimited Visits (Within 30 days (routine)) - Authorized Specialty Diagnoses / Procedures Referred By Elie hurley Referred To Contact Rheumatology Diagnoses Scalp psoriasis Psoriasis Mojgan Geiger PA-C [address] [place] [address] [place] [address] Referral ID Status Reason Start Date Expiration Date Visits Requested Visits Authorized [id number] Authorized Specialty Services Required 05/30/2024 999 999 [...] Encounter Details Date Type Department Care Team ([facility] st Contact Info) Description 05/30/2024 10:00 AM EDT Office Visit Dermatology[address] [place] [id number] Mojgan Geiger PA-C [address] [place] [address] [place] [address] Psoriasis*; Scalp psoriasis Allergies No known active allergiesdocumented as of this encounter (statuses as of 05/30/2024) Medications Medication Sig Dispensed Refills Start Date End Date Status Nystatin 657138 UNIT/GM External Powder (Nystop) Apply topically to affected area 3 times a day. Apply to buttocks 15 g 5 07/15/2022 Active Fluticasone Propionate 50 MCG/ACT Nasal Suspension (Flonase) Administer 2 Sprays into each nostril in the morning. opp hand. 16 g 1 11/25/2022 Active Nystatin-Triamcinolo ne 301227-1.1 UNIT/GM-% External Cream (Mycolog) apply topically to [...] 10/2020) Reviewed, same day as visit, 0 [facility] [address] Dermatology lab work(s)/pathology report(s) as well as those sent by referring provider prior to seeing pt. MEDICA TIONS: Current Outpatient Medications Medication Sig Dispense Refill Nystatin 358887 UNIT/GM External Powder (Nystop) Apply topically to affected area 3 times a day. Apply to buttocks 15 g 5 Fluticasone Propionate 50 MCG/ACT Nasal Suspension (Flonase) Administer 2 Sprays into each nostril in the morning. opp hand. 16 g 1 Nystatin-Triamcinolone 724115-3.1 UNIT/GM-% External Cream (Mycolog) apply topically to [...] treatment. Mojgan Geiger PA-C 05/30/2024 10:[address] [address] documented in this encounter Nursing Notes * [...] 06/05/2024 11:00 AM EDT Office Visit Rheumatology [facility] [address] [place] [address] Ami Rodriguez CRNP [address] [facility] [place] [address] 07/04/2024 11:40 AM EST Office Visit [facility], [place] [address] [facility] [address] Mojgan Geiger PA-C [address] [place] [address] [place] [address] 10/17/2024 9:20 AM EST Office Visit [facility] [address] [facility] [place] [address] Jose Yi, DO [address] [facility] [place] [address] 04/12/2025 10:20 AM EDT Office Visit [facility], [place] [address] [facility] [address] Mojgan Geiger PA-C [address] [place] [address] [place] [id number] Scheduled Procedures Name Priority Associated Diagnoses Date/Ti [...] this encounter Medical Devices Implanted Type Area Business Machine Mechanic Device Identifier Shelf Expiration Date Model / Serial / Lot Duraclip 16mm Xlg Repostn - [id number] Implanted:Qty: 1 on 01/03/2024 by Chantel Mai MD at [facility] [employer] [facility] 10/17/2024 [id number] / / Description:placed on ICV po lypectomy [...] study not interpreted or resulted by a [employer] or [employer] contracted radiologist. Mojgan Geiger PA-C RADIOLOGY ([facility]) documented in this encounter Visit Diagnoses Diagnosis Psoriasis- Primary Other psoriasis Scalp psoriasis Other psoriasis documented in this encounter Care Teams Replacer Relationship Specialty Start Date End Date Jose Yi DO [address] [place] [address] PCP - General Family Medicine 06/18/20 documented as of this encounter
[2024-08-26] MEDS: GADOBUTROL 30ML VIAL IV ONE (00:22)
--- NOTE | 2024-08-26 00:32 | Emergency Department Note ---
History of Present Illness General Chief complaint: TIA Symptoms Stated complaint: CANT THINK RIGHT, CONFUSION Time Seen by Provider: 08/25/24 19:31 History of Present Illness Provider complaint: Strokelike symptoms 69-year-old male presents emergency department with strokelike symptoms. Patient reports that 1 hour ago he was having difficulty speaking. He reports no blood thinners. No falls or traumas. No headaches. Home Medications Medication Instructions Recorded Confirmed Type mometasone 0.1 % topical cream 1 applic topical Q OTHER DAY PRN 06/17/18 08/25/24 History eczema multivitamin 1 tab PO DAILY 06/17/18 08/25/24 History alprazolam 0.5 mg tablet 0.25 mg PO DAILY PRN anxiety/sleep 01/01/20 08/25/24 History betamethasone dipropionate 0.05 % 1 applic topical UD PRN eczema 01/01/20 08/25/24 History topical ointment rosuvastatin 5 mg tablet 5 mg PO QAM 01/01/20 08/25/24 History Allergies Allergy/AdvReac Type Severity Reaction Status Date / Time No Known Allergies Allergy Verified 08/25/24 20:38 Past Med/Surg History Problem List (Updated 08/26/24 @ 00:32 by Reji Arita MD) Stroke-like symptoms (Acute) Stroke-like symptom Left knee pain Colon cancer screening Chest discomfort (Acute) High cholesterol (Chronic) Non-cardiac chest pain (Acute) Superficial laceration of scalp (Acute) Medical History (Updated 08/26/24 @ 00:32 by Reji Arita MD) Anxiety no meds currently Hyperlipidemia does not take any meds Surgical History History of arthroscopy of right knee History of colonoscopy Family History Mother Family history of diabetes mellitus Social History Smoking Status: Never smoker Second Hand Exposure: No; Do You Dip or Chew Tobacco: No; Tobacco Cessation Education Requested by Patient: No Hx Alcohol Use: No Hx Substance Use: No Preferred Language: Turkmen Communication Ability: Effective 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 Beliefs That Will Affect Care: None Current Living Situation: Spouse Current Living Situation Comment: lives at home with Other Information That Helps Us Care for You: No Feels Safe at Home: Yes Safety Concerns: Feels Safe At This Time Assistive Devices: Glasses Physical Exam Vital Signs Vital Signs - 24 hr 08/25/24 19:21 Temperature 36.5 C Temperature Source Oral Pulse Rate 70 Respiratory Rate 20 Respiratory Effort / Characteristics Non-Labored Spontaneous Respiratory Depth Normal Blood Pressure 182/99 H Blood Pressure Mean 126 Pulse Oximetry 97 Oxygen Delivery Method Room Air Sepsis Recent Fever Within 48 Hours No Sepsis New/Unexplained Change in Mental Status N/A Sepsis Action Taken by Nursing No Action Required Physical Exam HENT: Exam performed. -Head: Normocephalic and atraumatic. -Right Ear: External ear normal. No mastoid erythema -Left Ear: External ear normal. No mastoid erythema -Mouth/Throat: The oropharynx is clear and moist. No trismus in the jaw. No dental abscesses or uvula swelling. No oropharyngeal exudate or tonsillar abscesses. EYES: Conjunctivae and EOM are normal. Pupils are equal, round, and reactive to light. Right eye exhibits no discharge. Left eye exhibits no discharge. No scleral icterus. NECK: Normal range of motion. Neck supple. No JVD present. No spinous process tenderness present. No rigidity. No tracheal deviation and normal range of motion present. No Brudzinski's sign and no Kernig's sign noted. CV: Normal rate, regular rhythm, normal heart sounds and intact distal pulses. There is no peripheral edema. Palpable radial pulses bue. PULM/CHEST: Effort normal and breath sounds normal. No respiratory distress. No stridor. no wheezes. no rales. MUSC/SKEL: Normal range of motion. There is no peripheral edema, tenderness or deformity. NEURO: alert and oriented to person, place, and time. normal strength. No cranial nerve deficit or sensory deficit. Coordination and gait normal. GCS eye subscore is 4. GCS verbal subscore is 5. GCS motor subscore is 6. Cerebellar tests wnl. No clonus. NIHSS: 0 SKIN: Skin is warm and dry. not diaphoretic. PSYCH:normal mood and affect. Behavior is normal. Judgment and thought content normal. Course Course 1930: The patient was evaluated in room A10. A complete history and physical exam was performed Cardiac monitoring: An order was placed for continuous cardiac monitoring. The monitor shows a rate of 70 with sinus rhythm interpreted by me Patient's NIHSS is 0. No code stroke called at this time. 2030: Vital signs stable. Labs and imaging are unremarkable. Repeat NIHSS is still 0. Patient will be admitted to the hospital service for TIA. Aspirin ordered for the patient. Administered Medications Discontinued Medications Aspirin (Aspirin 81 Mg Chew) 324 mg PO NOW STA Stop: 08/25/24 20:32 Last Admin: 08/25/24 20:44 Dose: 324 mg Documented By: JESSICA Gadobutrol (Gadobutrol 30ml Vial) 8 ml IV ONCE ONE Stop: 08/26/24 00:22 Last Admin: 08/26/24 00:22 Dose: 8 ml Documented By: KARLA Ioversol (Optiray 320 125ml) 119 ml IV ONCE ONE Stop: 08/25/24 19:47 Last Admin: 08/25/24 19:46 Dose: 119 ml Documented By: PRASHANTH Medical Decision Making Laboratory Data Attestation: I reviewed the patient's lab results. 08/25/24 19:24 08/25/24 19:24 Lab Results 08/25/24 08/25/24 08/25/24 Range/Units 19:24 19:37 20:40 WBC 8.15 (4.8-10.8) K/ul RBC 5.64 (4.70-6.10) M/uL Hgb 16.1 (14.0-18.0) g/dl POC Hgb 16.7 (14.0-18.0) g/dl Hct 47.4 (42.0-52.0) % POC Hct 49 (42-52) % MCV 84.0 (80.0-100.0) fL MCH 28.5 (25.0-34.0) pg MCHC 34.0 (32.0-36.0) g/dL RDW Std Deviation 39.8 (36.4-46.3) fL RDW Coeff of Romeo 13.0 (11.5-14.5) % Plt Count 201 (130-400) K/uL MPV 10.0 (9.4-12.4) fL PT 10.0 (9.0-12.0) Seconds INR 0.9 (0.9-1.1) APTT 27 (21-31) Seconds PTT Ratio 1.0 POC Sodium 140 (135-144) mmol/L Sodium 139 (136-145) mmol/L POC Potassium 3.7 (3.3-5.0) mmol/L Potassium 3.7 (3.5-5.1) mmol/L POC Chloride 102 (101-112) mmol/L Chloride 102 (98-107) mmol/L Carbon Dioxide 29 (21-32) mmol/L POC Total CO2 27 (24-31) mmol/L Anion Gap 8 (3-11) POC Anion Gap 16.0 (16-25) mmol/L POC BUN 19 H (7-18) mg/dl BUN 18 (6-23) mg/dl Creatinine 1.07 (0.6-1.4) mg/dl POC Creatinine 1.1 (0.6-1.3) mg/dl Est Cr Clr Drug Dosing 66.6 ml/min eGFR 75.59 BUN/Creatinine Ratio 16.8 (10-20) Glucose 109 H (70-99(Fasting)) mg/dl POC Glucose (other) 102 H (70-99) mg/dl Calcium 9.5 (8.6-10.3) mg/dl POC Ioniz Calcium Carmelo 1.19 (1.12-1.32) mmol/l Magnesium 2.0 (1.7-2.4) mg/dl Total Bilirubin 1.1 H (0.2-1.0) mg/dl AST 25 (13-39) U/L ALT 35 (7-52) U/L Alkaline Phosphatase 93 (34-104) U/L Total Protein 7.7 (6.0-8.3) gm/dl Albumin 4.5 (3.4-5.0) gm/dl Globulin 3.2 (2.5-4.0) gm/dl Albumin/Globulin Ratio 1.4 (0.9-2) Urine Color Yellow Urine Appearance Clear (Clear) Urine pH 6.0 (4.5-7.5) Ur Specific [place] 1.030 (1.000-1.030) Urine Protein Negative (Negative) Urine Glucose (UA) Negative (Negative) Urine Ketones Negative (Negative) Urine Blood Negative (Negative) Urine Nitrite Negative (Negative) Urine Bilirubin Negative (Negative) Urine Urobilinogen Negative (Negative) Ur Leukocyte Esterase Negative (Negative) Imaging Data Radiologist's Impression: Chest X-Ray 08/25/24 19:30 Exam(s): XR CXR 1 VIEW EXAM: XR Chest, 1 View CLINICAL HISTORY: Reason for exam: stroke alert. TECHNIQUE: Frontal view of the chest. COMPARISON: X-ray chest: 01/01/2020 FINDINGS: Lungs: Prominent peripheral pulmonary vascular markings. No consolidation. Pleural space: Unremarkable. No pneumothorax. Heart: Unremarkable. No cardiomegaly. Mediastinum: Unremarkable. Normal mediastinal contour. Bones/joints: Unremarkable. No acute fracture. Other findings: An elevated right hemidiaphragm. . IMPRESSION: Prominent perihilar peripheral pulmonary vascular markings, question mild vascular congestion. No consolidation. No pleural effusion. Elevated right hemidiaphragm. . Electronically signed by: Renea Noriega MD, WILLIER 08/25/24 20:[address] 08/25/24 19:30 CR Exam(s): CT HEAD Without Contrast EXAM: CT Head Without Intravenous Contrast CLINICAL HISTORY: Reason for exam: Neuro deficit, acute, stroke suspected. TECHNIQUE: Axial computed tomography images of the head/brain without intravenous contrast. CTDI is 37.78 mGy and DLP is 546.36 mGy-cm. Automated exposure control was utilized for the study. A dose lowering technique was utilized adhering to the principles of ALARA. COMPARISON: CT brain: 01/01/2020 FINDINGS: Diagnostic sensitivity of the exam is reduced by motion artifact. Brain: There is no acute intracranial hemorrhage, mass-effect or midline shift. Palm-white matter differentiation is maintained. . Mild/moderate cerebral atrophy with widening of the extra-axial spaces and ventricular dilatation. There are periventricular/subcortical areas of decreased attenuation within the white matter tracts, most likely from chronic microvascular disease. Bones/joints: Unremarkable. No acute fracture. Soft tissues: Unremarkable. Sinuses: Unremarkable as visualized. No acute sinusitis. Mastoid air cells: Unremarkable as visualized. No mastoid effusion.. IMPRESSION: No acute intracranial abnormality noted. If there is continued clinical concern, recommend MRI brain exam. . Communications: Call Doctor Stroke Electronically signed by: Renea Noriega MD, RHONDA 08/25/24 20:19 PM Head CTA 08/25/24 19:33 CR Exam(s): CTA HEAD With Contrast IV Amt: 119ML OPTIRAY 320 EXAM: CT Angiography Head With Intravenous Contrast CLINICAL HISTORY: Reason for exam: storke symptoms. TECHNIQUE: Axial computed tomographic angiography images of the head with intravenous contrast. CTDI is 12.08 mGy and DLP is 975.02 mGy-cm. Automated exposure control was utilized for the study. A dose lowering technique was utilized adhering to the principles of ALARA. MIP reconstructed images were created and reviewed. CONTRAST: Patient received 119ML OPTIRAY 320 of IV contrast COMPARISON: CT brain: 01/01/2020 FINDINGS: Right internal carotid artery: . Intracranial segment is patent with no significant stenosis. No aneurysm. Right anterior cerebral artery: No occlusion or significant stenosis. No aneurysm. Right middle cerebral artery: No occlusion or significant stenosis. No aneurysm. Right posterior cerebral artery: No occlusion or significant stenosis. No aneurysm. Right vertebral artery: Unremarkable as visualized. Left internal carotid artery: No acute findings. Intracranial segment is patent with no significant stenosis. No aneurysm. Left anterior cerebral artery: No occlusion or significant stenosis. No aneurysm. Left middle cerebral artery: No occlusion or significant stenosis. No aneurysm. Left posterior cerebral artery: No occlusion or significant stenosis. No aneurysm. Left vertebral artery: Unremarkable as visualized. Basilar artery: No occlusion or significant stenosis. No aneurysm.. IMPRESSION: Intracranial circulation shows no vascular malformation, aneurysm or significant stenosis. No large vessel occlusion. Communications: Call Doctor Stroke Electronically signed by: Renea Norieag MD, DABR 08/25/24 20:29 PM Neck CTA 08/25/24 19:33 CR Exam(s): CTA NECK With Contrast IV Amt: 119ml opti 320 EXAM: CT Angiography Neck With Intravenous Contrast CLINICAL HISTORY: Reason for exam: storke symptoms. TECHNIQUE: Routine carotid CT angiography protocol was performed with intravenous contrast. NASCET criteria using the distal ICAs for comparison were used for evaluation of stenoses. CTDI is 12.08 mGy and DLP is 975.02 mGy-cm. Automated exposure control was utilized for the study. A dose lowering technique was utilized adhering to the principles of ALARA. MIP reconstructed images were created and reviewed. CONTRAST: Patient received 119ml opti 320 of IV contrast COMPARISON: None. FINDINGS: VASCULATURE: Right common carotid artery: Unremarkable. No occlusion or significant stenosis. No dissection. Right internal carotid artery: Unremarkable. Extracranial segment is patent with no occlusion or significant stenosis. No dissection. Right external carotid artery: Unremarkable. No occlusion. Right vertebral artery: Unremarkable. No occlusion or significant stenosis. No dissection. Left common carotid artery: Unremarkable. No occlusion or significant stenosis. No dissection. Left internal carotid artery: Unremarkable. Extracranial segment is patent with no occlusion or significant stenosis. No dissection. Left external carotid artery: Unremarkable. No occlusion. Left vertebral artery: Unremarkable. No occlusion or significant stenosis. No dissection. Atherosclerotic calcifications of the bilateral cavernous internal carotid arteries. NECK: Bones/joints: No acute fracture. No segmental malalignment. Multilevel moderate degenerative cervical spondylosis. Soft tissues: Unremarkable. Lung apices: Clear. Other findings: Gas filled mildly dilated esophagus. . CAROTID STENOSIS REFERENCE USING NASCET CRITERIA: % ICA stenosis = (1 - narrowest ICA diameter/diameter of distal cervical ICA) x 100. Mild - <50% stenosis. Moderate - 50-69% stenosis. Severe - 70-94% stenosis. Near occlusion - 95-99% stenosis. Occluded - 100% stenosis. IMPRESSION: No hemodynamically significant extracranial bilateral carotid/vertebral arterial stenoses, aneurysm or other acute pathology noted. Degenerative cervical spondylosis. . Communications: Call Doctor Stroke Electronically signed by: Renea Noriega MD, DABR 08/25/24 20:40 PM ECG Data Attestation: I personally reviewed and interpreted this ECG as follows: Rate (beats per minute): 67 Rhythm: + normal sinus ECG Intervals/blocks: + Normal QRS, + Normal GA and + Normal QT-c ECG ST segments: + Normal ST segments Additional Comments: Baseline wander and artifact. [facility] Narrative 1930: The patient was evaluated in room A10. A complete history and physical exam was performed Cardiac monitoring: An order was placed for continuous cardiac monitoring. The monitor shows a rate of 70 with sinus rhythm interpreted by me Patient's NIHSS is 0. No code stroke called at this time. 2030: Vital signs stable. Labs and imaging are unremarkable. Repeat NIHSS is still 0. Patient will be admitted to the hospital service for TIA. Aspirin ordered for the patient. Impression & Plan Stroke-like symptoms Discharge Plan Visit Data Chief Complaint: TIA Symptoms Stated Complaint: CANT THINK RIGHT, CONFUSION ED Provider: Reji Arita Discharge Problem: Stroke-like symptoms Patient Disposition: Admitted As Inpatient Discharge Instructions Interventions: ED Discharge Assessment Last Done: 08/25/24 22:05
[2024-08-26] MEDS: SODIUM CHLORIDE 0.9% 1,000 ML IV SCH (00:42)
--- NOTE | 2024-08-26 01:13 | Magnetic Resonance Report ---
Exam(s): MRI HEAD W/WO Contrast IV Amt: 8ml gadavist EXAM: MR Head Without and With Intravenous Contrast CLINICAL HISTORY: Reason for exam: cva/tia. TECHNIQUE: Magnetic resonance images of the head/brain without and with intravenous contrast in multiple planes. CONTRAST: Patient received 8ml gadavist of IV contrast COMPARISON: CT brain: 08/25/2024 FINDINGS: Brain: There is no restricted diffusion to suggest acute infarction/acute ischemia. No mass. No hemorrhage. No abnormal intracranial enhancement is seen. Numerous tiny T2-weighted bright areas/CSF signal structures are seen in both basal ganglia most likely representing benign perivascular spaces (series 5 image 14). There is mild/moderate cerebral atrophy with widening of the extra-axial spaces and ventricular dilatation. FLAIR images demonstrate periventricular and subcortical scattered white matter changes which are nonspecific but can be seen with chronic small vessel ischemic disease/age-related white matter degeneration.. Normal void signal is present within the carotid and basilar arteries. The basal cisterns are patent. Bones/joints: Unremarkable. Sinuses: Unremarkable as visualized. No acute sinusitis. Mastoid air cells: Unremarkable as visualized. No mastoid effusion. Orbits: Unremarkable as visualized. . IMPRESSION: No evidence of acute infarction, hemorrhage or mass. No abnormal intracranial enhancement is seen. Periventricular/subcortical scattered white matter changes, likely from chronic small vessel ischemic disease. Mild/moderate chronic involutional changes of the brain. Electronically signed by: Renea Noriega MD, DABR 08/26/24 01:13 AM
[2024-08-26 06:34] LABS: Basophils # (auto) 0.03 K/uL (0.00-0.20); Basophils % (auto) 0.4 %; Eosinophils # (auto) 0.13 K/uL (0.00-0.50); Eosinophils % (auto) 1.8 %; Hematocrit (blood only) 43.9 % (42.0-52.0); Immature Granulocytes # (auto) 0.01 K/uL (0.01-0.20); Immature Granulocytes % (auto) 0.1 %; Lymphocytes # (auto) 1.62 K/uL (1.20-3.40); Lymphocytes % (auto) 22.1 %; Mean Corpuscular Hemoglobin 28.5 pg (25.0-34.0); Mean Corpuscular Hgb Conc 34.2 g/dL (32.0-36.0); Mean Corpuscular Volume 83.5 fL (80.0-100.0); Mean Platelet Volume 10.5 fL (9.4-12.4); Monocytes # (auto) 0.75 K/uL (0.11-0.59); Monocytes % (auto) 10.2 %; Neutrophils % (auto) 65.4 %; Platelet Count 187 K/uL (130-400); RDW Coefficient of Variation 12.9 % (11.5-14.5); RDW Standard Deviation 39.5 fL (36.4-46.3); Red Blood Count 5.26 M/uL (4.70-6.10); White Blood Count 7.34 K/ul (4.8-10.8)
[2024-08-26 06:50] LABS: Calcium 8.8 mg/dl (8.6-10.3); Chol HDL Ratio 3.1 (0-5); Creatinine Clr Calc Pharmacy 75.8 ml/min
[2024-08-26 07:14] LABS: Estimated Average Glucose 128 mg/dl; Hemoglobin A1C 6.1 % (4.5-5.6)
--- NOTE | 2024-08-26 07:19 | Hospitalist Progress Note ---
Date of Service August 26, 2024 Assessment & Plan (1) Stroke-like symptom: Plan: Mr. Hook is a 69-year-old male with past medical significant for prediabetes, psoriasis, , hypercholesterolemia, scoliosis, history of HSV infection, general anxiety disorder presented 08/25 with strokelike symptoms. Patient with word finding difficulties lasting for half an hour. #Strokelike symptom CT head, CTA head and neck unremarkable MRI without acute infarction of mass, chronic involutional changes of the brain Monitoring telemetry PT OT evaluation Starting on aspirin and increase Crestor to 20 mg daily Lipid profile and HbA1c levels Consult neurology in a.m. for further recommendations #Hypertension Blood pressure elevated No history reported history Will monitor IV labetalol as needed Follow echo #prediabetes A1C 6.1% 08/26 counselled life style modifications, pt verbalized understanding #Hyperlipidemia continue increased crestor 20 mg daily LDL 100, total 167 ASCVD 24% DVT prophylaxis SCDs Disposition Telemetry Admission and Anticipated Discharge Date Admission Date: August 25, 2024 Results & Data Results & Data Vital Signs (Past 12 Hours) Vital Signs Temp Pulse Pulse Resp BP BP BP 08/26/24 02:38 36.7 C 60 18 129/84 08/25/24 23:09 62 08/25/24 22:47 37.2 C 66 16 151/80 H 08/25/24 22:47 08/25/24 22:05 08/25/24 21:45 65 18 152/94 H 08/25/24 19:21 36.5 C 70 20 182/99 H Pulse Ox Pulse Ox O2 Del Method O2 Del Method 08/26/24 02:38 92 Room Air 08/25/24 23:09 08/25/24 22:47 08/25/24 22:47 95 Room Air 08/25/24 22:05 Room Air 08/25/24 21:45 95 Room Air 08/25/24 19:21 97 Room Air
[2024-08-26] MEDS: MULTIVITAMIN TAB PO SCH (09:28)
[2024-08-26] MEDS: ASPIRIN 81 MG ECTAB PO SCH (09:28)
[2024-08-26] MEDS: ROSUVASTATIN CALCIUM 20 MG TAB PO SCH (09:28)
--- NOTE | 2024-08-26 10:18 | Electrocardiogram Report ---
Test Reason : Blood Pressure : */* mmHG Vent. Rate : 67 BPM Atrial Rate : 67 BPM P-R Int : 146 ms QRS Dur : 92 ms QT Int : 404 ms P-R-T Axes : -1 22 58 degrees QTcB Int : 426 ms Normal sinus rhythm Low voltage QRS Nonspecific T wave abnormality Abnormal ECG When compared with ECG of 14-Feb-2023 11:11, No significant change was found Confirmed by Pooja Joyner (Brendan) on 08/26/2024 10:17:59 AM Referred By: REFERRED SELF Confirmed By: Pooja Joyner
--- NOTE | 2024-08-26 11:42 | Electrocardiogram Report ---
Test Reason : Blood Pressure : */* mmHG Vent. Rate : 64 BPM Atrial Rate : 64 BPM P-R Int : 152 ms QRS Dur : 94 ms QT Int : 414 ms P-R-T Axes : -3 14 41 degrees QTcB Int : 427 ms Normal sinus rhythm Low voltage QRS Borderline ECG When compared with ECG of 25-Aug-2024 19:38, (unconfirmed) No significant change was found Confirmed by Pooja Jonyer (Brendan) on 08/26/2024 11:42:13 AM Referred By: REFERRED SELF Confirmed By: Pooja Joyner
[2024-08-26 12:12] VITALS: RESP 19; TEMP 98.4; O2SAT 96
--- NOTE | 2024-08-26 13:03 | Neurology Consultation ---
Date of Consultation August 26, 2024 Assessment & Plan (1) TIA (transient ischemic attack): Transient Aphasia in a 69M with a pMH of HLD. His current exam is normal and imaging has been unremarkable. He describes a pretty convincing case of aphasia which lasted for 10 minutes so i do suspect that this was a TIA. Plan -- continue ASA and statin -- echo read pending -- outpatient zio patch -- ok to d/c from my perspective Telehealth Consultation Telehealth Information Telehealth Information: I performed this visit using a real-time telehealth connection between my location and the patients location ([facility]). After connecting through interactive tele-video, patient was identified by name and date of and/or wristband check.Patient (or authorized healthcare service support representative) was informed that this was a telemedicine visit and it was being conducted confidentially over secure lines. My office door was closed and no one else was present in the room with me.Patient (or authorized healthcare service support representative) provided consent to proceed with the visit, expressed an understanding of privacy and security of the telemedicine visit, and gave permission to have a hospital service support representative in the room in order to assist with the visit and to conduct portions of the visit, as needed. I informed the patient (or authorized healthcare service support representative) that I reviewed their record and presented the opportunity for them to ask any questions regarding the visit today. The patient agreed to participate. History of Present Illness Reason for Consultation: Stroke like symptoms Attending Physician: Chari Zhou MD History of Present Illness Rachel Hook in a 69M with a PMH of non-cardiac chest pain, and HLD. He reports that around 630 he was talking and his words weren't making sense. Then he couldn't remember the name of the [facility] place he orders from. He says symptoms lasted for about 10 minutes. He was able to answer his sons questions. He does reports a mild headache during this in the front of his head. He denies any weakness and was able to walk normally. he denies any fevers, chills, vomiting, weakness or numbness. He does endorse feeling more stress recently Allergies Allergy/AdvReac Type Severity Reaction Status Date / Time No Known Allergies Allergy Verified 08/25/24 20:38 Home Medications Medication Instructions Recorded Confirmed Type mometasone 0.1 % topical cream 1 applic topical Q OTHER DAY PRN 06/17/18 08/25/24 History eczema multivitamin 1 tab PO DAILY 06/17/18 08/25/24 History alprazolam 0.5 mg tablet 0.25 mg PO DAILY PRN anxiety/sleep 01/01/20 08/25/24 History betamethasone dipropionate 0.05 % 1 applic topical UD PRN eczema 01/01/20 08/25/24 History topical ointment rosuvastatin 5 mg tablet 5 mg PO QAM 01/01/20 08/25/24 History Patient History Medical History (Updated 08/26/24 @ 13:26 by Beck Mesa MD) Anxiety no meds currently Hyperlipidemia does not take any meds Surgical History History of arthroscopy of right knee History of colonoscopy Family History Mother Family history of diabetes mellitus Social History Smoking Status: Never smoker Second Hand Exposure: No; Do You Dip or Chew Tobacco: No; Tobacco Cessation Education Requested by Patient: No Hx Alcohol Use: No Hx Substance Use: No Preferred Language: Nicaraguan Communication Ability: Effective Cleaner And Presser Required: No Beliefs That Will Affect Care: None Current Living Situation: Spouse Current Living Situation Comment: lives at home with Other Information That Helps Us Care for You: No Feels Safe at Home: Yes Safety Concerns: Feels Safe At This Time Assistive Devices: Glasses Review of Systems See HPI Physical Exam NEUROLOGIC EXAMINATION: Mental Status:alert, oriented to time, place, person, normal recent memory, normal remote memory, normal attention span, normal concentration, normal language, and normal fund of knowledge Cranial Nerves: CN 2 - no visual defect on confrontation and pupils round, equal, reactive to li ght CN 3, 4, 6 - extra-ocular movements intact and no nystagmus CN 5 - facial sensation intact CN 7 - no facial asymmetry CN 8 - intact hearing CN 9, 10 - palate symmetric, normal gag CN 11 - good shoulder shrug CN 12 - tongue midline MOTOR: Strength was at least antigravity throughout, Pronator drift was absent, and There were no abnormal movements SENSATION: intact GAIT: deferred COORDINATION: no ataxia with finger to nose testing and heel to jensen testing REFLEXES: cannot assess over telemedicine Results & Data Vital Signs (Past 12 Hours) Vital Signs Temp Pulse Pulse Resp BP Pulse Ox O2 Del Method 08/26/24 12:10 36.9 C 64 19 136/87 96 Room Air 08/26/24 07:57 36.5 C 61 18 137/77 94 Room Air 08/26/24 06:00 65 08/26/24 02:38 36.7 C 60 18 129/84 92 Room Air Laboratory Results Abnormal Lab Results 08/25/24 08/25/24 08/25/24 19:24 19:37 20:40 WBC 8.15 RBC 5.64 Hgb 16.1 POC Hgb 16.7 Hct 47.4 POC Hct 49 MCV 84.0 MCH 28.5 MCHC 34.0 RDW Std Deviation 39.8 RDW Coeff of Romeo 13.0 Plt Count 201 MPV 10.0 Immature Gran % (Auto) Neut % (Auto) Lymph % (Auto) [place] % (Auto) Eos % (Auto) Baso % (Auto) Neut # (Auto) Lymph # (Auto) [place] # (Auto) Eos # (Auto) Baso # (Auto) Immature Gran # (Auto) PT 10.0 INR 0.9 APTT 27 PTT Ratio 1.0 POC Sodium 140 Sodium 139 POC Potassium 3.7 Potassium 3.7 POC Chloride 102 Chloride 102 Carbon Dioxide 29 POC Total CO2 27 Anion Gap 8 POC Anion Gap 16.0 POC BUN 19 H BUN 18 Creatinine 1.07 POC Creatinine 1.1 Est Cr Clr Drug Dosing 66.6 eGFR 75.59 BUN/Creatinine Ratio 16.8 Glucose 109 H POC Glucose (other) 102 H Estimat Average Glucose Hemoglobin A1c Calcium 9.5 POC Ioniz Calcium Carmelo 1.19 Magnesium 2.0 Total Bilirubin 1.1 H AST 25 ALT 35 Alkaline Phosphatase 93 Total Protein 7.7 Albumin 4.5 Globulin 3.2 Albumin/Globulin Ratio 1.4 Triglycerides Cholesterol LDL Cholesterol, Calc VLDL Cholesterol, Calc HDL Cholesterol Cholesterol/HDL Ratio Urine Color Yellow Urine Appearance Clear Urine pH 6.0 Ur Specific Moody 1.030 Urine Protein Negative Urine Glucose (UA) Negative Urine Ketones Negative Urine Blood Negative Urine Nitrite Negative Urine Bilirubin Negative Urine Urobilinogen Negative Ur Leukocyte Esterase Negative 08/26/24 05:59 WBC 7.34 RBC 5.26 Hgb 15.0 POC Hgb Hct 43.9 POC Hct MCV 83.5 MCH 28.5 MCHC 34.2 RDW Std Deviation 39.5 RDW Coeff of Romeo 12.9 Plt Count 187 MPV 10.5 Immature Gran % (Auto) 0.1 Neut % (Auto) 65.4 Lymph % (Auto) 22.1 [place] % (Auto) 10.2 Eos % (Auto) 1.8 Baso % (Auto) 0.4 Neut # (Auto) 4.80 Lymph # (Auto) 1.62 [place] # (Auto) 0.75 H Eos # (Auto) 0.13 Baso # (Auto) 0.03 Immature Gran # (Auto) 0.01 PT INR APTT PTT Ratio POC Sodium Sodium 140 POC Potassium Potassium 4.0 POC Chloride Chloride 106 Carbon Dioxide 29 POC Total CO2 Anion Gap 5 POC Anion Gap POC BUN BUN 15 Creatinine 0.94 POC Creatinine Est Cr Clr Drug Dosing 75.8 eGFR 88.30 BUN/Creatinine Ratio 16.0 Glucose 108 H POC Glucose (other) Estimat Average Glucose 128 Hemoglobin A1c 6.1 H Calcium 8.8 POC Ioniz Calcium Carmelo Magnesium Total Bilirubin AST ALT Alkaline Phosphatase Total Protein Albumin Globulin Albumin/Globulin Ratio Triglycerides 66 Cholesterol 167 LDL Cholesterol, Calc 100 VLDL Cholesterol, Calc 13 HDL Cholesterol 54 Cholesterol/HDL Ratio 3.1 Urine Color Urine Appearance Urine pH Ur Specific Moody Urine Protein Urine Glucose (UA) Urine Ketones Urine Blood Urine Nitrite Urine Bilirubin Urine Urobilinogen Ur Leukocyte Esterase Diagnostic Findings Chest X-Ray 08/25/24 19:30 Exam(s): XR CXR 1 VIEW EXAM: XR Chest, 1 View CLINICAL HISTORY: Reason for exam: stroke alert. TECHNIQUE: Frontal view of the chest. COMPARISON: X-ray chest: 01/01/2020 FINDINGS: Lungs: Prominent peripheral pulmonary vascular markings. No consolidation. Pleural space: Unremarkable. No pneumothorax. Heart: Unremarkable. No cardiomegaly. Mediastinum: Unremarkable. Normal mediastinal contour. Bones/joints: Unremarkable. No acute fracture. Other findings: An elevated right hemidiaphragm. . IMPRESSION: Prominent perihilar peripheral pulmonary vascular markings, question mild vascular congestion. No consolidation. No pleural effusion. Elevated right hemidiaphragm. . Electronically signed by: Renea Noriega MD, DABR 08/25/24 20:[address] 08/25/24 19:30 CR Exam(s): CT HEAD Without Contrast EXAM: CT Head Without Intravenous Contrast CLINICAL HISTORY: Reason for exam: Neuro deficit, acute, stroke suspected. TECHNIQUE: Axial computed tomography images of the head/brain without intravenous contrast. CTDI is 37.78 mGy and DLP is 546.36 mGy-cm. Automated exposure control was utilized for the study. A dose lowering technique was utilized adhering to the principles of ALARA. COMPARISON: CT brain: 01/01/2020 FINDINGS: Diagnostic sensitivity of the exam is reduced by motion artifact. Brain: There is no acute intracranial hemorrhage, mass-effect or midline shift. Palm-white matter differentiation is maintained. . Mild/moderate cerebral atrophy with widening of the extra-axial spaces and ventricular dilatation. There are periventricular/subcortical areas of decreased attenuation within the white matter tracts, most likely from chronic microvascular disease. Bones/joints: Unremarkable. No acute fracture. Soft tissues: Unremarkable. Sinuses: Unremarkable as visualized. No acute sinusitis. Mastoid air cells: Unremarkable as visualized. No mastoid effusion.. IMPRESSION: No acute intracranial abnormality noted. If there is continued clinical concern, recommend MRI brain exam. . Communications: Call Doctor Stroke Electronically signed by: Renea Noriega MD, DABR 08/25/24 20:19 PM Head CTA 08/25/24 19:33 CR Exam(s): CTA HEAD With Contrast IV Amt: 119ML OPTIRAY 320 EXAM: CT Angiography Head With Intravenous Contrast CLINICAL HISTORY: Reason for exam: storke symptoms. TECHNIQUE: Axial computed tomographic angiography images of the head with intravenous contrast. CTDI is 12.08 mGy and DLP is 975.02 mGy-cm. Automated exposure control was utilized for the study. A dose lowering technique was utilized adhering to the principles of ALARA. MIP reconstructed images were created and reviewed. CONTRAST: Patient received 119ML OPTIRAY 320 of IV contrast COMPARISON: CT brain: 01/01/2020 FINDINGS: Right internal carotid artery: . Intracranial segment is patent with no significant stenosis. No aneurysm. Right anterior cerebral artery: No occlusion or significant stenosis. No aneurysm. Right middle cerebral artery: No occlusion or significant stenosis. No aneurysm. Right posterior cerebral artery: No occlusion or significant stenosis. No aneurysm. Right vertebral artery: Unremarkable as visualized. Left internal carotid artery: No acute findings. Intracranial segment is patent with no significant stenosis. No aneurysm. Left anterior cerebral artery: No occlusion or significant stenosis. No aneurysm. Left middle cerebral artery: No occlusion or significant stenosis. No aneurysm. Left posterior cerebral artery: No occlusion or significant stenosis. No aneurysm. Left vertebral artery: Unremarkable as visualized. Basilar artery: No occlusion or significant stenosis. No aneurysm.. IMPRESSION: Intracranial circulation shows no vascular malformation, aneurysm or significant stenosis. No large vessel occlusion. Communications: Call Doctor Stroke Electronically signed by: Renea Noriega MD, DABR 08/25/24 20:29 PM Neck CTA 08/25/24 19:33 CR Exam(s): CTA NECK With Contrast IV Amt: 119ml opti 320 EXAM: CT Angiography Neck With Intravenous Contrast CLINICAL HISTORY: Reason for exam: storke symptoms. TECHNIQUE: Routine carotid CT angiography protocol was performed with intravenous contrast. NASCET criteria using the distal ICAs for comparison were used for evaluation of stenoses. CTDI is 12.08 mGy and DLP is 975.02 mGy-cm. Automated exposure control was utilized for the study. A dose lowering technique was utilized adhering to the principles of ALARA. MIP reconstructed images were created and reviewed. CONTRAST: Patient received 119ml opti 320 of IV contrast COMPARISON: None. FINDINGS: VASCULATURE: Right common carotid artery: Unremarkable. No occlusion or significant stenosis. No dissection. Right internal carotid artery: Unremarkable. Extracranial segment is patent with no occlusion or significant stenosis. No dissection. Right external carotid artery: Unremarkable. No occlusion. Right vertebral artery: Unremarkable. No occlusion or significant stenosis. No dissection. Left common carotid artery: Unremarkable. No occlusion or significant stenosis. No dissection. Left internal carotid artery: Unremarkable. Extracranial segment is patent with no occlusion or significant stenosis. No dissection. Left external carotid artery: Unremarkable. No occlusion. Left vertebral artery: Unremarkable. No occlusion or significant stenosis. No dissection. Atherosclerotic calcifications of the bilateral cavernous internal carotid arteries. NECK: Bones/joints: No acute fracture. No segmental malalignment. Multilevel moderate degenerative cervical spondylosis. Soft tissues: Unremarkable. Lung apices: Clear. Other findings: Gas filled mildly dilated esophagus. . CAROTID STENOSIS REFERENCE USING NASCET CRITERIA: % ICA stenosis = (1 - narrowest ICA diameter/diameter of distal cervical ICA) x 100. Mild - <50% stenosis. Moderate - 50-69% stenosis. Severe - 70-94% stenosis. Near occlusion - 95-99% stenosis. Occluded - 100% stenosis. IMPRESSION: No hemodynamically significant extracranial bilateral carotid/vertebral arterial stenoses, aneurysm or other acute pathology noted. Degenerative cervical spondylosis. . Communications: Call Doctor Stroke Electronically signed by: Renea Noriega MD, DABR 08/25/24 20:40 PM Brain MRI 08/26/24 00:07 Exam(s): MRI HEAD W/WO Contrast IV Amt: 8ml gadavist EXAM: MR Head Without and With Intravenous Contrast CLINICAL HISTORY: Reason for exam: cva/tia. TECHNIQUE: Magnetic resonance images of the head/brain without and with intravenous contrast in multiple planes. CONTRAST: Patient received 8ml gadavist of IV contrast COMPARISON: CT brain: 08/25/2024 FINDINGS: Brain: There is no restricted diffusion to suggest acute infarction/acute ischemia. No mass. No hemorrhage. No abnormal intracranial enhancement is seen. Numerous tiny T2-weighted bright areas/CSF signal structures are seen in both basal ganglia most likely representing benign perivascular spaces (series 5 image 14). There is mild/moderate cerebral atrophy with widening of the extra-axial spaces and ventricular dilatation. FLAIR images demonstrate periventricular and subcortical scattered white matter changes which are nonspecific but can be seen with chronic small vessel ischemic disease/age-related white matter degeneration.. Normal void signal is present within the carotid and basilar arteries. The basal cisterns are patent. Bones/joints: Unremarkable. Sinuses: Unremarkable as visualized. No acute sinusitis. Mastoid air cells: Unremarkable as visualized. No mastoid effusion. Orbits: Unremarkable as visualized. . IMPRESSION: No evidence of acute infarction, hemorrhage or mass. No abnormal intracranial enhancement is seen. Periventricular/subcortical scattered white matter changes, likely from chronic small vessel ischemic disease. Mild/moderate chronic involutional changes of the brain. Electronically signed by: Renea Noriega MD, RHONDA 08/26/24 01:13 AM
[2024-08-26] MEDS ORDERED: STROKE PATIENT DISCHARGE STA (14:38)
--- NOTE | 2024-08-26 14:39 | Discharge Summary ---
Discharge Summary Date of Service August 26, 2024 Principal Dx & Hospital Course #1 = Principal Diagnosis (1) Stroke-like symptom: Mr. Hook is a 69-year-old male with past medical significant for prediabetes, psoriasis, , hypercholesterolemia, scoliosis, history of HSV infection, general anxiety disorder presented 08/25 with strokelike symptoms. Patient with word finding difficulties lasting for half an hour. No events on telemetry. ECHO WNL. Neurology suspects TIA. Discharging on increased statin and asa daily On day of discharge, patient symptom free, eating well, and without any neurologic deficit #TIA #Strokelike symptom, aphasia CT head, CTA head and neck unremarkable MRI without acute infarction of mass, chronic involutional changes of the brain Monitoring telemetry PT OT no necessary, independent Starting on aspirin and increase Crestor to 20 mg daily Neurology suspects TIA #Hypertension Blood pressure elevated No history reported history BP stabilized echo WNL #prediabetes A1C 6.1% 08/26 counselled life style modifications, pt verbalized understanding #Hyperlipidemia continue increased crestor 20 mg daily LDL 100, total 167 ASCVD 24% Notes For Next Care Provider - outpatient zio patch Medication Changes From Visit -ASA 81 mg daily -Rosuvastatin increased to 20mg daily Admission HPI Per Admitting Provider 69-year-old male with past medical history significant for prediabetes, hypercholesterolemia, scoliosis, history of HSV infection, general anxiety disorder presents with strokelike symptoms. Today around 6:30 PM when he was talking to his he could not make good sentences. Was ordering Pizza and could not member the name of the Pizza.He was having difficulty to speak. It lasted for about half hour. Currently speaking okay. Denies any headache. No dizziness. No blurred vision or double vision. No earaches. No runny nose. No sore throat. No difficulty swallowing.Denies nausea. Denies fevers. No chest pain or shortness of breath. No cough. No abdominal pain. Normal bowel movements. Denies blood in the stools. In the ER he was micturating frequently. No rash. Denies any weakness or numbness or tingliness. He says generally his blood pressure is 120/ 80 at home. His blood pressure high in the ER. Currently resting comfortably and speaking in full sentences and able to give his history. Past medical history. As mentioned above Past surgical history. Colonoscopy. Social history. . No smoking. Alcohol occasional. No drug use. Family history. Father alcoholism. Depression. Mother had cancer. Paternal grandmother had heart attack. Admission Exam Per Admitting Provider General- Not in distress. Head- atraumatic Eyes- PERRL. ENT- oropharynx clear Neck- supple, no JVD. Lungs- clear to auscultation no wheezing or crackles. Heart- regular rate and rhythm; no murmur, no gallop. Abdomen- normal bowel sounds, soft, nontender, no distension Extremities- no pretibial edema, no erythema seen. Neuro- alert, oriented PERRL, no facial palsy; no dysarthria; motor 5/5 bilaterally; no pronator drift, finger nose test ok, coordination of movements normal, sensations intact Discharge Exam Constitutional WD/WN, vitals as above Respiratory normal respiratory effort, lungs clear to auscultation Cardiovascular RRR, no murmur, no edema Neurologic PERRL, EOMI, accommodation nl, no face palsy, no dysarthria Updated Medication List Medication Instructions Recorded Confirmed Type mometasone 0.1 % topical cream 1 applic topical Q OTHER DAY PRN 06/17/18 08/25/24 History eczema multivitamin 1 tab PO DAILY 06/17/18 08/25/24 History alprazolam 0.5 mg tablet 0.25 mg PO DAILY PRN anxiety/sleep 01/01/20 08/25/24 History betamethasone dipropionate 0.05 % 1 applic topical UD PRN eczema 01/01/20 08/25/24 History topical ointment Pharmacist Discharge Consult 1 ea Not Applicable UD PRN ##0 08/26/24 Rx [Pharmacist Discharge Med Rec Consult] aspirin 81 mg tablet,delayed 81 mg PO QAM #30 tabs 08/26/24 Rx release rosuvastatin 20 mg tablet 20 mg PO QAM 30 days #30 tabs 08/26/24 Rx Hospital Stay Data Consultations 08/25/24 20:31 ED Decision to Admit Stat 08/26/24 08:00 Consult Neurology Routine Diagnostic Imagining Performed 08/25/24 19:30 CT head/brain wo con Stat 08/25/24 19:33 CT angio head w con Stat CT angio neck with con Stat 08/26/24 00:07 MR brain wo/w con Urgent Pending Results Patient Have Any Pending Studies at Discharge: No Discharge Instructions Given to Patient (Per Discharging Provider) You have been diagnosed with a transient ischemic attack (TIA). A TIA is also known as a mini-stroke. Blood could not reach part of your brain for a short period of time. Unlike a stroke, a TIA does not usually cause lasting damage. If you think you are having symptoms of a TIA or stroke,get medical help right away.Do this even if your symptoms go away. You will start: -Increased Rosuvastatin 20mg daily -Aspirin 81mg daily Prevention Take your medicines exactly as directed. Dont skip doses.Learn to take your blood pressure. Write down the numbers and tell your healthcare provider.Learn your cholesterol level. Follow your healthcare providers advice about how to keep cholesterol under control. Make these lifestyle changes: Limit your alcohol.Don't have more than 2 drinks a day if you're a man and no more than 1 drink a day if you're a woman. Keep a healthy weight.Get help to lose any extra pounds. If you are overweight, your healthcare provider will work with you to lose weight and lower your body mass index (BMI) to a normal or near-normal level. Making diet changes and increasing physical activity can help. Start an exercise program.Ask your healthcare provider how to get started and how much activity you should try to get on a daily or weekly basis. You can benefit from simple activities, such as walking or gardening. Learn ways to manage your stress.There are many methods to manage stress. These can help you deal with stress in your home and work life. You may also need to change what you eat. Your healthcare provider may refer you to a registered dietitian for help with diet changes. These changes may include: Eating less fat and cholesterol Having less salt (sodium), especially if you have high blood pressure Eating more fresh vegetables and fruits Eating lean proteins, such as fish, poultry, and legumes (beans and peas) Eating less red meat and processed meats Choosing low-fat dairy products Using vegetable and nut oils in small amounts Limiting sweet and processed foods, such as chips, cookies, and baked goods To cut back on sodium: Limit the amount of canned, dried, packaged, and fast foods you eat.Dont add salt to your food.Season foods with herbs instead of salt when you cook. Follow-up care If you are taking certain medicines, you may need blood tests to check for progress or problems. Have blood tests as often as prescribed by your healthcare provider. [id number] away if you have any of these: Weakness, tingling, or loss of feeling on 1 side of your face or body Sudden double vision, or trouble seeing in 1 or both eyes Sudden trouble talking, or slurring your speech Trouble understanding other people speakingSudden, severe headache Dizziness, loss of balance, a spinning feeling, or a sense of falling Blackouts Seizures B.E.F.A.S.T.is an easy way to remember the signs of stroke. When you see these signs, you know that you need to [id number]. B.E. F.A.S.T.stands for: Bis forbalance.Sudden loss of balance or coordination. Eis foreyes.Vision changes in one or both eyes. Fis forface drooping.One side of the face is drooping or numb. When the person smiles, the smile is uneven. Ais forarm weakness.One arm is weak or numb. When the person lifts both arms at the same time, one arm may drift downward. Sis forspeech difficulty.You may notice slurred speech or trouble speaking. The person can't repeat a simple sentence correctly when asked. Tis fortime to call 911. If someone shows any of these symptoms, even if they go away, [id number] away. Make note of the time the symptoms first appeared. Total Time Total Time Spent Total Time Spent (In Minutes): 35
--- NOTE | 2024-08-26 14:43 | Pharmacy Report ---
- Date of Service August 26, 2024 - Pharmacy CVA/TIA Medication Review Medications to Prevent Stroke handout has been added to the patients discharge packet. Antiplatelet(s) * Aspirin 81 mg PO daily Cholesterol * High intensity statin: rosuvastatin 20 mg daily DVT Prophylaxis * SCD thigh Therapeutic Anticoagulation * No history of Afib/Aflutter noted Type 2 Diabetes * Patient does not have T2DM
[2024-08-26 14:53] VITALS: BP 152/94; PULSE 64
--- NOTE | 2024-08-28 11:28 | Pharmacy Report ---
Pharmacist Stroke Counseling - Date of Service August 28, 2024 - Scope: Pharmacy has been consulted to provide medication discharge counseling for this patient admitted with transient ischemic attack as per the Pharmacist Discharge Counseling for Stroke Patients Protocol. - Medications on Discharge: Home Medications Medication Instructions Recorded Confirmed mometasone 0.1 % topical cream 1 applic topical Q OTHER DAY PRN 06/17/18 08/25/24 eczema multivitamin 1 tab PO DAILY 06/17/18 08/25/24 alprazolam 0.5 mg tablet 0.25 mg PO DAILY PRN anxiety/sleep 01/01/20 08/25/24 betamethasone dipropionate 0.05 % 1 applic topical UD PRN eczema 01/01/20 08/25/24 topical ointment New Rx's Medication Instructions Recorded Pharmacist Discharge Consult 1 ea Not Applicable UD PRN ##0 08/26/24 [Pharmacist Discharge Med Rec Consult] aspirin 81 mg tablet,delayed 81 mg PO QAM #30 tabs 08/26/24 release rosuvastatin 20 mg tablet 20 mg PO QAM 30 days #30 tabs 08/26/24 - Action: The above medications, specifically ones for stroke treatment/prophylaxis, have been reviewed in detail with the patient and/or patient liability claims representative(s) prior to discharge. This includes indication, common adverse reactions, drug interactions, and medication administration. Medication counseling has been employed using the teach-back method to ensure understanding. - Outcome: The patient and/or patient liability claims representative(s) have demonstrated understanding of the medications. Additional comments: Spoke with Gilbert this morning. Has picked up his medications from the pharmacy. Reviewed indications and side effects with new medications (aspirin and increased Crestor to 20mg). All questions answered. He has a PCP appointment coming up on , aware that he is to get zio patch set up. Thank you for allowing pharmacy to be involved in the care of this patient. Please call [phone] with any additional questions
== END 2024-08-26 16:26 | disposition home or self-care (01) | DRG 69 ==
LOC: ED 19:17 → 2E 21:21
DX: G45.9 Transient cerebral ischemic attack, unspecified; R41.0 Disorientation, unspecified; I10 Essential (primary) hypertension; R47.01 Aphasia; Z83.3 Family history of diabetes mellitus; E78.00 Pure hypercholesterolemia, unspecified; M41.9 Scoliosis, unspecified; F41.1 Generalized anxiety disorder